=== PATIENT | female | born 1975 | race African-American/Black ===

== ENCOUNTER 2016-09-02 13:22 | Emergency (ER) | payer MEDICAID ==
[2010-10-22 09:19] VITALS: BMI 19.5
[2016-09-02 15:08] LABS: BASOPHILS 0.3 % (0.0-2.0); EOSINOPHILS 1.3 % (0-7); HEMATOCRIT 29.1 % (36.0-48.0); HEMOGLOBIN 10.5 g/dL (12-16); IMMATURE GRANULOCYTES 0.3 % (0-5); LYMPHOCYTES 26.7 % (15-50); MCH 32.7 pg (26.0-34.0); MCHC 36.1 g/dL (31.0-37.0); MCV 90.7 fL (80.0-100.0); MEAN PLATELET VOLUME 11.1 fL (7.4-10.4); MONOCYTES 9.9 % (2-11); NEUTROPHILS 61.5 % (40-80); RBC 3.21 10x6/uL (4.00-5.40); RDW 16.8 % (11.5-14.5); WBC 12.1 10x3/uL (4.8-10.8)
[2016-09-02 15:14] LABS: PLATELET COUNT 287 10x3/uL (130-400)
[2016-09-02 15:19] LABS: INR 0.99 (0.85-1.17); PROTIME 12.9 SECONDS (11.6-15.0)
[2016-09-02 15:28] LABS: ALBUMIN 3.3 g/dL (3.4-5.0); ANION GAP 16.2 mmol/L (8-16); BILIRUBIN - TOTAL 0.79 mg/dL (0.2-1.3); CALCIUM 8.8 mg/dL (8.5-10.1); CARBON DIOXIDE 23.9 mmol/L (21.0-32.0); CREATININE - SERUM 0.9 mg/dL (0.6-1.3); POTASSIUM - SERUM 4.1 mmol/L (3.5-5.1); PROTEIN - SERUM 6.2 g/dL (6.4-8.2)
== END 2016-09-02 17:42 | disposition home or self-care (01) ==
LOC: D.ER 13:22
PROVIDERS: Emergency Medicine
DX: D57.00 Hb-SS disease with crisis, unspecified (principal); F17.200 Nicotine dependence, unspecified, uncomplicated

== ENCOUNTER 2016-09-13 10:23 | Emergency (ER) | payer MEDICAID ==
[2010-10-22 09:19] VITALS: BMI 19.5
== END 2016-09-13 13:44 | disposition home or self-care (01) ==
LOC: D.ER 10:23
DX: S91.311A Laceration without foreign body, right foot, initial encounter (principal); W45.8XXA Other foreign body or object entering through skin, initial encounter; Y93.89 Activity, other specified; Y92.019 Unspecified place in single-family (private) house as the place of occurrence of the external cause; D57.1 Sickle-cell disease without crisis; F45.9 Somatoform disorder, unspecified

== ENCOUNTER 2016-09-19 09:20 | Emergency (ER) | payer MEDICAID ==
[2010-10-22 09:19] VITALS: BMI 19.5
[2016-09-19 10:06] LABS: BASOPHILS 0.4 % (0.0-2.0); EOSINOPHILS 1.7 % (0-7); HEMATOCRIT 32.7 % (36.0-48.0); HEMOGLOBIN 12.1 g/dL (12-16); IMMATURE GRANULOCYTES 0.3 % (0-5); LYMPHOCYTES 11.4 % (15-50); MCH 33.2 pg (26.0-34.0); MCV 89.6 fL (80.0-100.0); MEAN PLATELET VOLUME 10.3 fL (7.4-10.4); MONOCYTES 7.4 % (2-11); NEUTROPHILS 78.8 % (40-80); PLATELET COUNT 413 10x3/uL (130-400); RBC 3.65 10x6/uL (4.00-5.40); RDW 16.1 % (11.5-14.5); WBC 18.8 10x3/uL (4.8-10.8)
[2016-09-19 10:11] LABS: ANION GAP 14.7 mmol/L (8-16); CALCIUM 9.8 mg/dL (8.5-10.1); CARBON DIOXIDE 27.4 mmol/L (21.0-32.0); CREATININE - SERUM 0.9 mg/dL (0.6-1.3); POTASSIUM - SERUM 4.1 mmol/L (3.5-5.1)
== END 2016-09-19 11:39 | disposition home or self-care (01) ==
LOC: D.ER 09:20
PROVIDERS: Emergency Medicine
DX: D57.1 Sickle-cell disease without crisis (principal); F45.9 Somatoform disorder, unspecified; F17.200 Nicotine dependence, unspecified, uncomplicated

== ENCOUNTER 2016-10-04 08:24 | Emergency (ER) | payer MEDICAID ==
[2010-10-22 09:19] VITALS: BMI 19.5
== END 2016-10-04 09:05 | disposition home or self-care (01) ==
LOC: D.ER 08:24
DX: M25.50 Pain in unspecified joint (principal); D57.00 Hb-SS disease with crisis, unspecified; F45.9 Somatoform disorder, unspecified

== ENCOUNTER 2016-10-11 13:37 | Emergency (ER) | payer MEDICAID ==
[2010-10-22 09:19] VITALS: BMI 19.5
== END 2016-10-11 15:43 | disposition home or self-care (01) ==
LOC: D.ER 13:37
DX: M79.605 Pain in left leg (principal); D57.00 Hb-SS disease with crisis, unspecified; F17.200 Nicotine dependence, unspecified, uncomplicated

== ENCOUNTER 2016-10-18 22:33 | Emergency (ER) | payer MEDICAID ==
[2010-10-22 09:19] VITALS: BMI 19.5
[2016-10-18 23:44] LABS: BASOPHILS 0.4 % (0.0-2.0); EOSINOPHILS 2.8 % (0-7); HEMATOCRIT 33.3 % (36.0-48.0); HEMOGLOBIN 12.1 g/dL (12-16); IMMATURE GRANULOCYTES 0.7 % (0-5); LYMPHOCYTES 30.5 % (15-50); MCH 32.2 pg (26.0-34.0); MCHC 36.3 g/dL (31.0-37.0); MCV 88.6 fL (80.0-100.0); MEAN PLATELET VOLUME 9.6 fL (7.4-10.4); MONOCYTES 7.6 % (2-11); RBC 3.76 10x6/uL (4.00-5.40); RDW 16.3 % (11.5-14.5); WBC 13.7 10x3/uL (4.8-10.8)
[2016-10-18 23:49] LABS: PLATELET COUNT 536 10x3/uL (130-400)
== END 2016-10-19 00:58 | disposition home or self-care (01) ==
LOC: D.ER 22:33
PROVIDERS: Emergency Medicine
DX: D57.00 Hb-SS disease with crisis, unspecified (principal); F45.9 Somatoform disorder, unspecified

== ENCOUNTER 2016-10-19 11:05 | Emergency (ER) | payer MEDICAID ==
[2010-10-22 09:19] VITALS: BMI 19.5
== END 2016-10-19 15:54 | disposition home or self-care (01) ==
LOC: D.ER 11:05
DX: G89.29 Other chronic pain (principal); F45.9 Somatoform disorder, unspecified; F17.200 Nicotine dependence, unspecified, uncomplicated

== ENCOUNTER 2016-10-24 17:10 | Emergency (ER) | payer MEDICAID ==
[2010-10-22 09:19] VITALS: BMI 19.5
== END 2016-10-24 19:25 | disposition left against medical advice (07) ==
LOC: D.ER 17:10
DX: D57.00 Hb-SS disease with crisis, unspecified (principal)

== ENCOUNTER 2016-10-25 13:41 | Emergency (ER) | payer MEDICAID ==
[2010-10-22 09:19] VITALS: BMI 19.5
== END 2016-10-25 19:10 | disposition home or self-care (01) ==
LOC: D.ER 13:41
DX: S82.62XA Displaced fracture of lateral malleolus of left fibula, initial encounter for closed fracture (principal); X58.XXXA Exposure to other specified factors, initial encounter; Y93.89 Activity, other specified; Y92.019 Unspecified place in single-family (private) house as the place of occurrence of the external cause; Z86.73 Personal history of transient ischemic attack (TIA), and cerebral infarction without residual deficits; F45.9 Somatoform disorder, unspecified; D57.1 Sickle-cell disease without crisis

== ENCOUNTER 2016-11-02 15:29 | Emergency (ER) | payer MEDICAID ==
[2010-10-22 09:19] VITALS: BMI 19.5
== END 2016-11-02 20:00 | disposition home or self-care (01) ==
LOC: D.ER 15:29
DX: M79.605 Pain in left leg (principal); S82.62XA Displaced fracture of lateral malleolus of left fibula, initial encounter for closed fracture; X58.XXXA Exposure to other specified factors, initial encounter; Y93.9 Activity, unspecified; Y92.89 Other specified places as the place of occurrence of the external cause; Z86.73 Personal history of transient ischemic attack (TIA), and cerebral infarction without residual deficits; F45.9 Somatoform disorder, unspecified; F17.200 Nicotine dependence, unspecified, uncomplicated

== ENCOUNTER 2016-11-29 08:16 | Emergency (ER) | payer MEDICAID ==
[2010-10-22 09:19] VITALS: BMI 19.5
== END 2016-11-29 12:41 | disposition home or self-care (01) ==
LOC: D.ER 08:16
DX: S82.62XA Displaced fracture of lateral malleolus of left fibula, initial encounter for closed fracture (principal); X58.XXXA Exposure to other specified factors, initial encounter; Y93.89 Activity, other specified; Y92.89 Other specified places as the place of occurrence of the external cause; Z91.19 Patient's noncompliance with other medical treatment and regimen; Z86.73 Personal history of transient ischemic attack (TIA), and cerebral infarction without residual deficits; D57.1 Sickle-cell disease without crisis; F45.9 Somatoform disorder, unspecified; F17.200 Nicotine dependence, unspecified, uncomplicated

== ENCOUNTER 2016-12-23 17:19 | Emergency (ER) | payer MEDICAID ==
[2010-10-22 09:19] VITALS: BMI 19.5
== END 2016-12-23 20:19 | disposition left against medical advice (07) ==
LOC: D.ER 17:19
DX: M79.675 Pain in left toe(s) (principal); F45.9 Somatoform disorder, unspecified

== ENCOUNTER 2017-01-16 17:33 | Emergency (ER) | payer MEDICAID ==
[2010-10-22 09:19] VITALS: BMI 19.5
[2017-01-16 18:48] LABS: BASOPHILS 0.3 % (0-2); EOSINOPHILS 1.5 % (0-7); HEMATOCRIT 34.4 % (36.0-48.0); HEMOGLOBIN 12.5 g/dL (12-16); IMMATURE GRANULOCYTES 0.6 % (0-5); LYMPHOCYTES 13.1 % (15-50); MCH 34.3 pg (26.0-34.0); MCHC 36.3 g/dL (31.0-37.0); MCV 94.5 fL (80.0-100.0); MEAN PLATELET VOLUME 10.2 fL (7.4-10.4); MONOCYTES 8.1 % (2-11); NEUTROPHILS 76.4 % (40-80); PLATELET COUNT 351 10x3/uL (130-400); RBC 3.64 10x6/uL (4.00-5.40); RDW 16.1 % (11.5-14.5); WBC 18.5 10x3/uL (4.8-10.8)
== END 2017-01-16 19:15 | disposition home or self-care (01) ==
LOC: D.ER 17:33
PROVIDERS: Physician Assistant Medical
DX: D57.1 Sickle-cell disease without crisis (principal); Z76.0 Encounter for issue of repeat prescription; M79.605 Pain in left leg; M79.604 Pain in right leg; Z86.73 Personal history of transient ischemic attack (TIA), and cerebral infarction without residual deficits; F45.9 Somatoform disorder, unspecified; F17.200 Nicotine dependence, unspecified, uncomplicated

== ENCOUNTER 2017-01-21 07:22 | Emergency (ER) | payer MEDICAID ==
[2010-10-22 09:19] VITALS: BMI 19.5
== END 2017-01-21 08:12 | disposition left against medical advice (07) ==
LOC: D.ER 07:22
DX: T14.8 Other injury of unspecified body region (principal); W57.XXXA Bitten or stung by nonvenomous insect and other nonvenomous arthropods, initial encounter; Y93.89 Activity, other specified; Y92.89 Other specified places as the place of occurrence of the external cause

== ENCOUNTER 2017-02-23 12:14 | Emergency (ER) | payer MEDICAID ==
[2010-10-22 09:19] VITALS: BMI 19.5
[2017-02-23 13:02] LABS: APPEARANCE CLEAR (CLEAR); BILIRUBIN NEGATIVE (NEGATIVE); COLOR YELLOW (YELLOW); GLUCOSE NEGATIVE (NEGATIVE); KETONE NEGATIVE (NEGATIVE); LEUKOCYTE ESTERASE NEGATIVE (NEGATIVE); NITRITE NEGATIVE (NEGATIVE); PROTEIN NEGATIVE (NEGATIVE); SPECIFIC GRAVITY 1.015 (1.005-1.020); UROBILINOGEN NORMAL (NORMAL)
== END 2017-02-23 13:15 | disposition home or self-care (01) ==
LOC: D.ER 12:14
PROVIDERS: Physician Assistant
DX: M54.12 Radiculopathy, cervical region (principal)

== ENCOUNTER 2017-03-03 22:57 | Emergency (ER) | payer MEDICAID ==
[2010-10-22 09:19] VITALS: BMI 19.5
== END 2017-03-03 23:45 | disposition left against medical advice (07) ==
LOC: D.ER 22:57
DX: M79.604 Pain in right leg (principal)

== ENCOUNTER 2017-09-02 05:13 | Emergency (ER) | payer MEDICAID ==
[2010-10-22 09:19] VITALS: BMI 19.5
[2017-09-02 06:56] LABS: HEMATOCRIT 34.9 % (36.0-48.0); HEMOGLOBIN 12.6 g/dL (12-16); MCHC 36.1 g/dL (31.0-37.0); MCV 96.9 fL (80.0-100.0); MEAN PLATELET VOLUME 10.2 fL (7.4-10.4); PLATELET COUNT 560 10x3/uL (130-400); RDW 16.4 % (11.5-14.5); WBC 22.2 10x3/uL (4.8-10.8)
[2017-09-02 07:00] LABS: ALBUMIN 4.5 g/dL (3.4-5.0); BILIRUBIN - TOTAL 0.77 mg/dL (0.2-1.3); CALCIUM 10.1 mg/dL (8.5-10.1); CARBON DIOXIDE 18.1 mmol/L (21.0-32.0); CREATININE - SERUM 1.1 mg/dL (0.6-1.3); POTASSIUM - SERUM 4.1 mmol/L (3.5-5.1); PROTEIN - SERUM 8.5 g/dL (6.4-8.2)
[2017-09-02 07:18] LABS: LYMPHOCYTES 20 % (15-50); MONOCYTES 8 % (2-11); NEUTROPHILS 72 % (40-80); PLATELET ESTIMATE INCREASED
== END 2017-09-02 08:58 | disposition home or self-care (01) ==
LOC: D.ER 05:13
PROVIDERS: Family Medicine
DX: R09.89 Other specified symptoms and signs involving the circulatory and respiratory systems (principal); S20.469A Insect bite (nonvenomous) of unspecified back wall of thorax, initial encounter; W57.XXXA Bitten or stung by nonvenomous insect and other nonvenomous arthropods, initial encounter; Y93.89 Activity, other specified; Y92.019 Unspecified place in single-family (private) house as the place of occurrence of the external cause; L03.312 Cellulitis of back [any part except buttock and flank]; M79.1 Myalgia; D57.1 Sickle-cell disease without crisis

== ENCOUNTER 2017-09-19 09:07 | Inpatient (IN) | payer MEDICAID ==
[~2017-09-19] VITALS: Ht 160 cm; Wt 72.7 kg
[2017-09-19 09:48] LABS: BASOPHILS 0.2 % (0-2); EOSINOPHILS 1.4 % (0-7); HEMATOCRIT 32.9 % (36.0-48.0); HEMOGLOBIN 11.8 g/dL (12-16); IMMATURE GRANULOCYTES 0.4 % (0-5); MCH 33.5 pg (26.0-34.0); MCHC 35.9 g/dL (31.0-37.0); MCV 93.5 fL (80.0-100.0); MEAN PLATELET VOLUME 9.8 fL (7.4-10.4); MONOCYTES 5.8 % (2-11); NEUTROPHILS 76.2 % (40-80); PLATELET COUNT 479 10x3/uL (130-400); RBC 3.52 10x6/uL (4.00-5.40); RDW 16.5 % (11.5-14.5); WBC 17.5 10x3/uL (4.8-10.8)
[2017-09-19 10:36] LABS: ALBUMIN 3.5 g/dL (3.4-5.0); ANION GAP 15.2 mmol/L (8-16); BILIRUBIN - TOTAL 0.57 mg/dL (0.2-1.3); CALCIUM 8.5 mg/dL (8.5-10.1); CARBON DIOXIDE 23.6 mmol/L (21.0-32.0); POTASSIUM - SERUM 3.8 mmol/L (3.5-5.1); PROTEIN - SERUM 6.7 g/dL (6.4-8.2)
[2017-09-19 12:35] LABS: CKMB 0.8 U/L (0.0-3.6); CREATINE KINASE 66 UL (21-215)
[2017-09-19 12:37] LABS: TROPONIN-I < 0.017 ng/mL (0.000-0.060)
[2017-09-20 05:33] LABS: HEMATOCRIT 31.8 % (36.0-48.0); HEMOGLOBIN 11.6 g/dL (12-16); MCHC 36.5 g/dL (31.0-37.0); MCV 93.3 fL (80.0-100.0); MEAN PLATELET VOLUME 10.2 fL (7.4-10.4); PLATELET COUNT 539 10x3/uL (130-400); RBC 3.41 10x6/uL (4.00-5.40); RDW 16.4 % (11.5-14.5); WBC 26.1 10x3/uL (4.8-10.8)
[2017-09-20 06:04] LABS: ALBUMIN 3.5 g/dL (3.4-5.0); ANION GAP 12.5 mmol/L (8-16); BILIRUBIN - TOTAL 0.3 mg/dL (0.2-1.3); CALCIUM 8.8 mg/dL (8.5-10.1); CARBON DIOXIDE 24.1 mmol/L (21.0-32.0); CREATININE - SERUM 1.1 mg/dL (0.6-1.3); PROTEIN - SERUM 6.9 g/dL (6.4-8.2)
[2017-09-20 06:06] LABS: POTASSIUM - SERUM 4.6 mmol/L (3.5-5.1)
[2017-09-20 07:29] LABS: LYMPHOCYTES 11 % (15-50); MONOCYTES 2 % (2-11); NEUTROPHILS 86 % (40-80); POLYCHROMASIA OCC
[2017-09-20 07:34] LABS: VACUOLES OCC
[2017-09-20 07:37] LABS: ANISOCYTOSIS 1+; HYPOCHROMASIA 1+; TARGET CELLS OCC
[2017-09-20 07:39] LABS: PLATELET ESTIMATE INCREASED
[2017-09-20] MEDS ORDERED: FOLIC ACID1 MG PO (15:09)
[2017-09-20] MEDS ORDERED: XANAX1 MG PO (15:10)
[2017-09-20] MEDS ORDERED: DROXIA200 MG PO (15:13)
[2017-09-20] MEDS ORDERED: PERCOCET 10/3251 TA1 PO (15:14)
[2017-09-20 17:20] VITALS: BP 146/76; BMI 28.4
[2017-09-20 20:00] VITALS: BP 103/64
[2017-09-20 22:10] VITALS: Ht 160 cm; Wt 72.7 kg
[2017-09-21] VITALS: BP 138/89
[2017-09-21 00:58] LABS: HCG URINE NEGATIVE (NEGATIVE)
[2017-09-21 05:08] LABS: BASOPHILS 0.2 % (0-2); HEMOGLOBIN 10.8 g/dL (12-16); IMMATURE GRANULOCYTES 0.5 % (0-5); LYMPHOCYTES 25.7 % (15-50); MCH 33.2 pg (26.0-34.0); MCV 92.3 fL (80.0-100.0); MONOCYTES 6.4 % (2-11); NEUTROPHILS 66.2 % (40-80); PLATELET COUNT 528 10x3/uL (130-400); RBC 3.25 10x6/uL (4.00-5.40); RDW 16.6 % (11.5-14.5); WBC 20.3 10x3/uL (4.8-10.8)
[2017-09-21 05:44] LABS: ALBUMIN 3.3 g/dL (3.4-5.0); ANION GAP 14.2 mmol/L (8-16); BILIRUBIN - TOTAL 0.26 mg/dL (0.2-1.3); CALCIUM 8.8 mg/dL (8.5-10.1); CARBON DIOXIDE 24.7 mmol/L (21.0-32.0); CREATININE - SERUM 0.9 mg/dL (0.6-1.3); POTASSIUM - SERUM 4.9 mmol/L (3.5-5.1); PROTEIN - SERUM 5.9 g/dL (6.4-8.2)
[2017-09-21] MEDS ORDERED: HYDROXYUREA500 MG GT (06:54)
[2017-09-21] MEDS ORDERED: ZITHROMAX250 MG PO (06:57)
[2017-09-21] MEDS ORDERED: OMNICEF300 MG PO (06:57)
[2017-09-21 07:00] VITALS: BP 113/91
[2017-09-22 17:13] LABS: HGB - A2 4.6 % (1.8-3.2); HGB - F 2.9 % (0.0-2.0); HGB - INTERPRETATION Note: (()); HGB - S 48.5 % (0.0); HGB - SOLUBILITY Positive (Negative)
== END 2017-09-21 12:55 | disposition home or self-care (01) | DRG 193 ==
LOC: D.ER 09:07 → D.M2 09-20 14:10
PROVIDERS: Family Medicine; Legal Medicine; Student in an Organized Health Care Education/Training Program
DX: J18.9 Pneumonia, unspecified organism (principal); D57.00 Hb-SS disease with crisis, unspecified; F14.90 Cocaine use, unspecified, uncomplicated

== ENCOUNTER 2017-09-29 06:40 | Emergency (ER) | payer MEDICAID ==
[2017-09-20 22:10] VITALS: BMI 28.4
[~2017-09-29 06:40] MED LIST: DROXIA200 MG PO; FOLIC ACID1 MG PO; HYDROXYUREA500 MG GT; OMNICEF300 MG PO; PERCOCET 10/3251 TA1 PO; XANAX1 MG PO; ZITHROMAX250 MG PO
[2017-09-29 07:31] LABS: UDS - AMPHET NEGATIVE QUAL (NEGATIVE); UDS - BARB NEGATIVE QUAL (NEGATIVE); UDS - BENZO POSITIVE QUAL (NEGATIVE); UDS - COCAINE POSITIVE QUAL (NEGATIVE); UDS - OPIATE POSITIVE QUAL (NEGATIVE); UDS - PCP NEGATIVE QUAL (NEGATIVE); UDS - THC NEGATIVE QUAL (NEGATIVE)
== END 2017-09-29 08:31 | disposition home or self-care (01) ==
LOC: D.ER 06:40
PROVIDERS: Family Medicine
DX: T78.40XA Allergy, unspecified, initial encounter (principal); X58.XXXA Exposure to other specified factors, initial encounter; Z86.73 Personal history of transient ischemic attack (TIA), and cerebral infarction without residual deficits; F17.200 Nicotine dependence, unspecified, uncomplicated

== ENCOUNTER 2017-10-05 09:51 | Emergency (ER) | payer MEDICAID ==
[2017-09-20 22:10] VITALS: BMI 28.4
== END 2017-10-05 11:07 | disposition left against medical advice (07) ==
LOC: D.ER 09:51
DX: R05 Cough (principal)

== ENCOUNTER 2017-10-28 12:05 | Emergency (ER) | payer MEDICAID ==
[2017-09-20 22:10] VITALS: BMI 28.4
== END 2017-10-28 15:23 | disposition home or self-care (01) ==
LOC: D.ER 12:05
DX: M79.605 Pain in left leg (principal); M79.604 Pain in right leg; Z86.73 Personal history of transient ischemic attack (TIA), and cerebral infarction without residual deficits; D57.1 Sickle-cell disease without crisis; F17.200 Nicotine dependence, unspecified, uncomplicated

== ENCOUNTER 2017-11-20 03:20 | Emergency (ER) | payer MEDICAID ==
[2017-09-20 22:10] VITALS: BMI 28.4
== END 2017-11-20 04:14 | disposition home or self-care (01) ==
LOC: D.ER 03:20
DX: B85.0 Pediculosis due to Pediculus humanus capitis (principal); B85.1 Pediculosis due to Pediculus humanus corporis

== ENCOUNTER 2017-11-21 02:02 | Emergency (ER) | payer MEDICAID ==
[2017-09-20 22:10] VITALS: BMI 28.4
== END 2017-11-21 02:57 | disposition home or self-care (01) ==
LOC: D.ER 02:02
DX: F41.9 Anxiety disorder, unspecified (principal)

== ENCOUNTER 2017-11-23 03:13 | Emergency (ER) | payer MEDICAID ==
[2017-09-20 22:10] VITALS: BMI 28.4
== END 2017-11-23 04:43 | disposition home or self-care (01) ==
LOC: D.ER 03:13
DX: L29.9 Pruritus, unspecified (principal); Z86.73 Personal history of transient ischemic attack (TIA), and cerebral infarction without residual deficits; D57.1 Sickle-cell disease without crisis; F17.200 Nicotine dependence, unspecified, uncomplicated

== ENCOUNTER 2017-11-26 22:18 | Emergency (ER) | payer MEDICAID ==
[2017-09-20 22:10] VITALS: BMI 28.4
== END 2017-11-26 23:32 | disposition left against medical advice (07) ==
LOC: D.ER 22:18
DX: F41.0 Panic disorder [episodic paroxysmal anxiety] (principal)

== ENCOUNTER 2017-11-29 01:56 | Emergency (ER) | payer MEDICAID ==
[2017-09-20 22:10] VITALS: BMI 28.4
[2017-11-29 02:44] LABS: UDS - AMPHET NEGATIVE QUAL (NEGATIVE); UDS - BARB NEGATIVE QUAL (NEGATIVE); UDS - BENZO NEGATIVE QUAL (NEGATIVE); UDS - COCAINE POSITIVE QUAL (NEGATIVE); UDS - OPIATE NEGATIVE QUAL (NEGATIVE); UDS - PCP NEGATIVE QUAL (NEGATIVE); UDS - THC POSITIVE QUAL (NEGATIVE)
[2017-11-29 02:50] LABS: APPEARANCE CLEAR (CLEAR); BILIRUBIN NEGATIVE (NEGATIVE); COLOR YELLOW (YELLOW); GLUCOSE NEGATIVE (NEGATIVE); KETONE NEGATIVE (NEGATIVE); NITRITE NEGATIVE (NEGATIVE); PROTEIN NEGATIVE (NEGATIVE); SPECIFIC GRAVITY 1.015 (1.005-1.020); UROBILINOGEN NORMAL (NORMAL)
[2017-11-29 02:51] LABS: BACTERIA MODERATE /hpf (NONE SEEN); EPITHELIAL CELLS 0-5 /hpf (0-5); RED CELLS - URINE 0-5 /hpf (0-5); WHITE CELLS - URINE 0-5 /hpf (0-5)
[2017-11-29 03:04] LABS: BASOPHILS 0.3 % (0-2); EOSINOPHILS 0.9 % (0-7); HEMATOCRIT 35.4 % (36.0-48.0); HEMOGLOBIN 13.2 g/dL (12-16); IMMATURE GRANULOCYTES 0.6 % (0-5); LYMPHOCYTES 29.3 % (15-50); MCH 31.1 pg (26.0-34.0); MCHC 37.3 g/dL (31.0-37.0); MCV 83.5 fL (80.0-100.0); MONOCYTES 7.9 % (2-11); PLATELET COUNT 428 10x3/uL (130-400); RBC 4.24 10x6/uL (4.00-5.40); RDW 18.5 % (11.5-14.5)
[2017-11-29 03:19] LABS: ANION GAP 17.7 mmol/L (8-16); BILIRUBIN - TOTAL 0.77 mg/dL (0.2-1.3); CALCIUM 8.9 mg/dL (8.5-10.1); CARBON DIOXIDE 24.8 mmol/L (21.0-32.0); CREATININE - SERUM 0.9 mg/dL (0.6-1.3); POTASSIUM - SERUM 3.5 mmol/L (3.5-5.1); PROTEIN - SERUM 7.8 g/dL (6.4-8.2)
== END 2017-11-29 03:43 | disposition home or self-care (01) ==
LOC: D.ER 01:56
PROVIDERS: Family Medicine
DX: F14.10 Cocaine abuse, uncomplicated (principal); F12.10 Cannabis abuse, uncomplicated; F10.10 Alcohol abuse, uncomplicated; L29.9 Pruritus, unspecified; Z86.73 Personal history of transient ischemic attack (TIA), and cerebral infarction without residual deficits; F17.200 Nicotine dependence, unspecified, uncomplicated

== ENCOUNTER 2017-12-31 12:00 | Emergency (ER) | payer MEDICAID ==
[2017-09-20 22:10] VITALS: BMI 28.4
== END 2017-12-31 12:40 | disposition home or self-care (01) ==
LOC: D.ER 12:00
DX: B86 Scabies (principal); B85.0 Pediculosis due to Pediculus humanus capitis

== ENCOUNTER 2018-01-03 21:54 | Emergency (ER) | payer MEDICAID ==
[2017-09-20 22:10] VITALS: BMI 28.4
== END 2018-01-03 22:53 | disposition home or self-care (01) ==
LOC: D.ER 21:54
DX: F41.9 Anxiety disorder, unspecified (principal); L29.9 Pruritus, unspecified

== ENCOUNTER 2018-01-04 09:26 | Emergency (ER) | payer MEDICAID ==
[2017-09-20 22:10] VITALS: BMI 28.4
== END 2018-01-04 09:27 | disposition home or self-care (01) ==
LOC: D.ER 09:26
DX: Z02.9 Encounter for administrative examinations, unspecified (principal)

== ENCOUNTER 2018-01-31 10:49 | Emergency (ER) | payer MEDICAID ==
[~2018-01-31] VITALS: Ht 160 cm; Wt 63.6 kg
[2018-01-31 10:56] VITALS: Ht 160 cm; Wt 63.6 kg
[2018-01-31] MEDS ORDERED: HYDROXYUREA500 MG PO (11:23)
[2018-01-31] MEDS ORDERED: PERCOCET 10/3251 TA1 PO (11:23)
[2018-01-31 11:34] VITALS: BP 126/88
== END 2018-01-31 11:35 | disposition home or self-care (01) ==
LOC: D.ER 10:49
DX: D57.00 Hb-SS disease with crisis, unspecified (principal); Z86.73 Personal history of transient ischemic attack (TIA), and cerebral infarction without residual deficits; F17.200 Nicotine dependence, unspecified, uncomplicated; L29.9 Pruritus, unspecified

== ENCOUNTER 2018-02-09 13:11 | Emergency (ER) | payer MEDICAID ==
[~2018-02-09] VITALS: Ht 160 cm; Wt 59.1 kg
[~2018-02-09 13:11] MED LIST changes: +HYDROXYUREA500 MG PO
[2018-02-09 13:16] VITALS: BP 135/92; Ht 160 cm; Wt 59.1 kg
[2018-02-09 14:37] LABS: HEMATOCRIT 34.3 % (36.0-48.0); HEMOGLOBIN 12.8 g/dL (12-16); MCH 34.2 pg (26.0-34.0); MCHC 37.3 g/dL (31.0-37.0); MCV 91.7 fL (80.0-100.0); MEAN PLATELET VOLUME 9.9 fL (7.4-10.4); PLATELET COUNT 325 10x3/uL (130-400); RBC 3.74 10x6/uL (4.00-5.40); RDW 17.4 % (11.5-14.5); WBC 23.9 10x3/uL (4.8-10.8)
[2018-02-09 14:44] LABS: APPEARANCE CLOUDY (CLEAR); COLOR YELLOW (YELLOW); GLUCOSE NEGATIVE (NEGATIVE); KETONE NEGATIVE (NEGATIVE); NITRITE NEGATIVE (NEGATIVE); PROTEIN NEGATIVE (NEGATIVE); SPECIFIC GRAVITY 1.015 (1.005-1.020)
[2018-02-09 14:45] LABS: BILIRUBIN 1+ (NEGATIVE)
[2018-02-09 14:46] LABS: BACTERIA MODERATE /hpf (NONE SEEN); RED CELLS - URINE 0-5 /hpf (0-5); WHITE CELLS - URINE 0-5 /hpf (0-5)
[2018-02-09 14:56] LABS: ALBUMIN 3.7 g/dL (3.4-5.0); ANION GAP 15.9 mmol/L (8-16); BILIRUBIN - TOTAL 1.3 mg/dL (0.2-1.3); CALCIUM 9.8 mg/dL (8.5-10.1); CARBON DIOXIDE 23.2 mmol/L (21.0-32.0); CREATININE - SERUM 1.1 mg/dL (0.6-1.3); POTASSIUM - SERUM 4.1 mmol/L (3.5-5.1)
[2018-02-09 15:25] LABS: LYMPHOCYTES 12 % (15-50); MONOCYTES 1 % (2-11); NEUTROPHILS 87 % (40-80)
[2018-02-09 15:31] LABS: PLATELET ESTIMATE NORMAL; SICKLE CELLS OCC; TARGET CELLS OCC
== END 2018-02-09 16:23 | disposition home or self-care (01) ==
LOC: D.ER 13:11
PROVIDERS: Family Medicine
DX: J20.9 Acute bronchitis, unspecified (principal); D57.1 Sickle-cell disease without crisis; F17.200 Nicotine dependence, unspecified, uncomplicated; R09.89 Other specified symptoms and signs involving the circulatory and respiratory systems; M54.6 Pain in thoracic spine

== ENCOUNTER 2018-02-16 18:08 | Emergency (ER) | payer MEDICAID ==
[~2018-02-16] VITALS: Ht 160 cm; Wt 59.1 kg
[2018-02-16 19:19] VITALS: Ht 160 cm; Wt 59.1 kg
[2018-02-16] MEDS ORDERED: PERMETHRIN60 GM TOPICAL (21:33)
[2018-02-16 22:04] VITALS: BP 132/84
== END 2018-02-16 22:06 | disposition home or self-care (01) ==
LOC: D.ER 18:08
DX: L50.9 Urticaria, unspecified (principal); T75.89XA Other specified effects of external causes, initial encounter; M79.605 Pain in left leg

== ENCOUNTER 2018-03-13 12:29 | Emergency (ER) | payer MEDICAID ==
[~2018-03-13 12:29] MED LIST changes: +PERMETHRIN60 GM TOPICAL
[2018-03-13 12:42] VITALS: BP 123/077; Ht 160 cm
== END 2018-03-13 14:14 | disposition left against medical advice (07) ==
LOC: D.ER 12:29
DX: R07.81 Pleurodynia (principal); D57.1 Sickle-cell disease without crisis

== ENCOUNTER 2018-03-17 22:02 | Emergency (ER) | payer MEDICAID | END 2018-03-17 22:20 | disposition left against medical advice (07) | LOC: D.ER 22:02 | DX: R44.3 Hallucinations, unspecified (principal) ==

== ENCOUNTER 2018-03-24 09:51 | Observation (INO) | payer MEDICAID ==
[~2018-03-24] VITALS: Ht 160 cm; Wt 59.1 kg
[2018-03-24 10:44] LABS: BASOPHILS 0.3 % (0-2); EOSINOPHILS 1.3 % (0-7); HEMATOCRIT 35.5 % (36.0-48.0); HEMOGLOBIN 13.3 g/dL (12-16); IMMATURE GRANULOCYTES 0.9 % (0-5); LYMPHOCYTES 18.1 % (15-50); MCHC 37.5 g/dL (31.0-37.0); MCV 90.8 fL (80.0-100.0); MEAN PLATELET VOLUME 10.5 fL (7.4-10.4); MONOCYTES 6.6 % (2-11); NEUTROPHILS 72.8 % (40-80); PLATELET COUNT 299 10x3/uL (130-400); RBC 3.91 10x6/uL (4.00-5.40); RDW 16.8 % (11.5-14.5); WBC 15.2 10x3/uL (4.8-10.8)
[2018-03-24 10:45] VITALS: BP 140/98
[2018-03-24 10:51] LABS: ALBUMIN 3.4 g/dL (3.4-5.0); ALKALINE PHOSPHATASE 115 U/L (46-116); ALT (SGPT) 24 U/L (10-68); BILIRUBIN - TOTAL 2.22 mg/dL (0.2-1.3); CALC OSMOLALITY 273 mosm/kg (275-300); CALCIUM 8.5 mg/dL (8.5-10.1); CARBON DIOXIDE 27.9 mmol/L (21.0-32.0); CHLORIDE - SERUM 101 mmol/L (98-107); CREATININE - SERUM 0.8 mg/dL (0.6-1.3); GLUCOSE 119 mg/dL (74-106); POTASSIUM - SERUM 3.5 mmol/L (3.5-5.1); SODIUM 137 mmol/L (136-145); UREA NITROGEN 9 mg/dL (7-18); eGFR NON AFRICAN AMERICAN 84 mL/min (90-120)
[2018-03-24 14:00] VITALS: BP 112/79
[2018-03-24 15:14] VITALS: BP 128/78
[2018-03-24 20:06] VITALS: BP 132/95; Ht 160 cm; Wt 59.1 kg
[2018-03-24 20:16] VITALS: BP 113/76
[2018-03-25 00:18] VITALS: BP 115/73
[2018-03-25 04:41] VITALS: BP 145/89
[2018-03-25] MEDS ORDERED: VISTARIL25 MG PO (06:36)
[2018-03-25] MEDS ORDERED: PROAIR HFA8.5 GM INH (06:39)
[2018-03-25 07:49] LABS: ALBUMIN 3.5 g/dL (3.4-5.0); ALKALINE PHOSPHATASE 103 U/L (46-116); ALT (SGPT) 25 U/L (10-68); BILIRUBIN - TOTAL 0.94 mg/dL (0.2-1.3); CALC OSMOLALITY 281 mosm/kg (275-300); CALCIUM 9.6 mg/dL (8.5-10.1); CARBON DIOXIDE 22.7 mmol/L (21.0-32.0); CHLORIDE - SERUM 102 mmol/L (98-107); CREATININE - SERUM 0.8 mg/dL (0.6-1.3); GLUCOSE 170 mg/dL (74-106); POTASSIUM - SERUM 4.3 mmol/L (3.5-5.1); PROTEIN - SERUM 6.9 g/dL (6.4-8.2); SODIUM 138 mmol/L (136-145); UREA NITROGEN 19 mg/dL (7-18); eGFR NON AFRICAN AMERICAN 84 mL/min (90-120)
[2018-03-25 07:50] LABS: HEMATOCRIT 32.6 % (36.0-48.0); HEMOGLOBIN 12.3 g/dL (12-16); MCHC 37.7 g/dL (31.0-37.0); MCV 90.1 fL (80.0-100.0); PLATELET COUNT 278 10x3/uL (130-400); RBC 3.62 10x6/uL (4.00-5.40); RDW 16.3 % (11.5-14.5); WBC 17.6 10x3/uL (4.8-10.8)
[2018-03-25 08:31] LABS: LYMPHOCYTES 10 % (15-50); MONOCYTES 2 % (2-11); NEUTROPHILS 88 % (40-80); PLATELET ESTIMATE NORMAL
[2018-03-25 12:38] VITALS: BP 132/76
== END 2018-03-25 15:36 | disposition left against medical advice (07) ==
LOC: D.ER 09:51 → D.EDHOLD 14:11 → D.MS 14:18 → OBSVTIME 17:00 → D.MS 03-25 15:36
PROVIDERS: Family Medicine
DX: R53.83 Other fatigue (principal); R53.81 Other malaise; J02.9 Acute pharyngitis, unspecified; F17.210 Nicotine dependence, cigarettes, uncomplicated

== ENCOUNTER → 2018-03-26 12:51 | Emergency (ER) | payer MEDICAID ==
[2018-03-24 20:06] VITALS: BMI 23.0
[~2018-03-26 12:51] MED LIST changes: +ELIQUIS5 MG PO; +LISINOPRIL10 MG PO; +PROAIR HFA8.5 GM INH; +VISTARIL25 MG PO
== END | disposition home or self-care (01) ==
LOC: D.ER 12:51
DX: R05 Cough (principal); Z76.5 Malingerer [conscious simulation]; R09.89 Other specified symptoms and signs involving the circulatory and respiratory systems; Z86.73 Personal history of transient ischemic attack (TIA), and cerebral infarction without residual deficits; F17.200 Nicotine dependence, unspecified, uncomplicated

== ENCOUNTER 2018-03-26 16:46 | Emergency (ER) | payer MEDICAID ==
[~2018-03-26] VITALS: Ht 160 cm; Wt 59.1 kg
[~2018-03-26 16:46] MED LIST changes: -ELIQUIS5 MG PO; -LISINOPRIL10 MG PO
[2018-03-26 17:05] VITALS: BP 120/70; Ht 160 cm; Wt 59.1 kg
== END 2018-03-26 20:29 | disposition home or self-care (01) ==
LOC: D.ER 16:46
DX: R05 Cough (principal); Z76.5 Malingerer [conscious simulation]; R09.89 Other specified symptoms and signs involving the circulatory and respiratory systems; Z86.73 Personal history of transient ischemic attack (TIA), and cerebral infarction without residual deficits; F17.200 Nicotine dependence, unspecified, uncomplicated

== ENCOUNTER 2018-04-08 04:09 | Inpatient (IN) | payer MEDICAID ==
[~2018-04-08] VITALS: Ht 160 cm; Wt 59.1 kg
[2018-04-08 04:35] VITALS: BP 125/76
[2018-04-08] MEDS ORDERED: HYDROXYUREA500 MG GT (05:31)
[2018-04-08] MEDS ORDERED: FOLIC ACID1 MG PO (05:31)
[2018-04-08 05:43] VITALS: BP 126/81
[2018-04-08 05:54] LABS: ALBUMIN 3.3 g/dL (3.4-5.0); ALKALINE PHOSPHATASE 115 U/L (46-116); ALT (SGPT) 22 U/L (10-68); BILIRUBIN - TOTAL 1.01 mg/dL (0.2-1.3); CALC OSMOLALITY 284 mosm/kg (275-300); CALCIUM 7.9 mg/dL (8.5-10.1); CHLORIDE - SERUM 112 mmol/L (98-107); CREATININE - SERUM 0.8 mg/dL (0.6-1.3); POTASSIUM - SERUM 4.2 mmol/L (3.5-5.1); PROTEIN - SERUM 6.4 g/dL (6.4-8.2); SODIUM 142 mmol/L (136-145); UREA NITROGEN 17 mg/dL (7-18); eGFR NON AFRICAN AMERICAN 84 mL/min (90-120)
[2018-04-08 05:58] LABS: GLUCOSE 99 mg/dL (74-106)
[2018-04-08 06:21] LABS: HEMATOCRIT 31.9 % (36.0-48.0); HEMOGLOBIN 11.8 g/dL (12-16); MCH 33.9 pg (26.0-34.0); MCV 91.7 fL (80.0-100.0); MEAN PLATELET VOLUME 10.4 fL (7.4-10.4); PLATELET COUNT 373 10x3/uL (130-400); RBC 3.48 10x6/uL (4.00-5.40); RDW 17.1 % (11.5-14.5); WBC 24.8 10x3/uL (4.8-10.8)
[2018-04-08 06:50] LABS: APPEARANCE CLEAR (CLEAR); BILIRUBIN NEGATIVE (NEGATIVE); COLOR YELLOW (YELLOW); GLUCOSE NEGATIVE (NEGATIVE); KETONE NEGATIVE (NEGATIVE); NITRITE NEGATIVE (NEGATIVE); PROTEIN NEGATIVE (NEGATIVE); SPECIFIC GRAVITY 1.015 (1.005-1.020); UROBILINOGEN NORMAL (NORMAL)
[2018-04-08 07:08] LABS: LYMPHOCYTES 19 % (15-50); MONOCYTES 3 % (2-11); NEUTROPHILS 76 % (40-80); PLATELET ESTIMATE NORMAL
[2018-04-08 11:02] VITALS: BP 181/103; Ht 160 cm; Wt 59.1 kg
[2018-04-08 12:59] VITALS: BP 181/103
[2018-04-08 18:50] VITALS: BP 173/107
[2018-04-08 19:25] LABS: UDS - AMPHET NEGATIVE QUAL (NEGATIVE); UDS - BARB NEGATIVE QUAL (NEGATIVE); UDS - BENZO NEGATIVE QUAL (NEGATIVE); UDS - COCAINE POSITIVE QUAL (NEGATIVE); UDS - OPIATE POSITIVE QUAL (NEGATIVE); UDS - PCP NEGATIVE QUAL (NEGATIVE); UDS - THC NEGATIVE QUAL (NEGATIVE)
[2018-04-08 20:00] VITALS: BP 145/90
[2018-04-09] VITALS: BP 151/98
[2018-04-09 04:00] VITALS: BP 160/96
[2018-04-09 05:21] LABS: BASOPHILS 0.2 % (0-2); EOSINOPHILS 0.6 % (0-7); HEMATOCRIT 29.1 % (36.0-48.0); HEMOGLOBIN 10.7 g/dL (12-16); IMMATURE GRANULOCYTES 1.1 % (0-5); LYMPHOCYTES 13.6 % (15-50); MCH 33.6 pg (26.0-34.0); MCHC 36.8 g/dL (31.0-37.0); MCV 91.5 fL (80.0-100.0); MEAN PLATELET VOLUME 10.1 fL (7.4-10.4); MONOCYTES 6.7 % (2-11); NEUTROPHILS 77.8 % (40-80); PLATELET COUNT 287 10x3/uL (130-400); RBC 3.18 10x6/uL (4.00-5.40); WBC 22.1 10x3/uL (4.8-10.8)
[2018-04-09 08:41] VITALS: BP 155/105
[2018-04-09 11:58] VITALS: BP 167/112
[2018-04-09 14:57] VITALS: BP 156/97
[2018-04-09 20:32] VITALS: BP 152/71
[2018-04-10 04:26] VITALS: BP 150/97
[2018-04-10 07:43] VITALS: BP 146/63
[2018-04-10 09:27] LABS: HEMATOCRIT 29.4 % (36.0-48.0); HEMOGLOBIN 10.8 g/dL (12-16); MCH 33.3 pg (26.0-34.0); MCHC 36.7 g/dL (31.0-37.0); MCV 90.7 fL (80.0-100.0); MEAN PLATELET VOLUME 10.1 fL (7.4-10.4); PLATELET COUNT 261 10x3/uL (130-400); RBC 3.24 10x6/uL (4.00-5.40); RDW 17.5 % (11.5-14.5); WBC 18.6 10x3/uL (4.8-10.8)
[2018-04-10 09:43] LABS: ANION GAP 10.6 mmol/L (8-16); BILIRUBIN - TOTAL 2.16 mg/dL (0.2-1.3); CALCIUM 8.6 mg/dL (8.5-10.1); CARBON DIOXIDE 29.7 mmol/L (21.0-32.0); CREATININE - SERUM 0.9 mg/dL (0.6-1.3); POTASSIUM - SERUM 3.3 mmol/L (3.5-5.1); PROTEIN - SERUM 6.5 g/dL (6.4-8.2)
[2018-04-10 10:57] LABS: ANISOCYTOSIS OCC; LYMPHOCYTES 14 % (15-50); MONOCYTES 8 % (2-11); NEUTROPHILS 77 % (40-80); PLATELET ESTIMATE NORMAL; POIKILOCYTOSIS OCC; SCHISTOCYTES OCC; SICKLE CELLS OCC
[2018-04-10 12:11] LABS: HAPTOGLOBIN <10 mg/dL (34-200)
[2018-04-10 12:17] VITALS: BP 155/90
[2018-04-10 16:03] VITALS: BP 155/106
[2018-04-10 21:46] VITALS: BP 148/101
[2018-04-11 05:15] VITALS: BP 175/110
[2018-04-11 08:27] VITALS: BP 194/109
[2018-04-11 12:43] VITALS: BP 146/90
[2018-04-11 13:16] LABS: HGB SOLUBILITY (SICKLE SCREEN) Positive (Negative)
[2018-04-11 20:00] VITALS: BP 146/105
[2018-04-12 04:00] VITALS: BP 150/104
[2018-04-12 07:00] LABS: BASOPHILS 0.1 % (0-2); HEMATOCRIT 26.1 % (36.0-48.0); HEMOGLOBIN 9.5 g/dL (12-16); IMMATURE GRANULOCYTES 0.5 % (0-5); MCHC 36.4 g/dL (31.0-37.0); MCV 90.6 fL (80.0-100.0); MONOCYTES 8.5 % (2-11); NEUTROPHILS 75.9 % (40-80); PLATELET COUNT 268 10x3/uL (130-400); RBC 2.88 10x6/uL (4.00-5.40); RDW 16.6 % (11.5-14.5); WBC 17.1 10x3/uL (4.8-10.8)
[2018-04-12 07:51] LABS: ALBUMIN 2.5 g/dL (3.4-5.0); ALKALINE PHOSPHATASE 104 U/L (46-116); ALT (SGPT) 20 U/L (10-68); BILIRUBIN - TOTAL 1.62 mg/dL (0.2-1.3); CALC OSMOLALITY 276 mosm/kg (275-300); CALCIUM 7.9 mg/dL (8.5-10.1); CARBON DIOXIDE 27.7 mmol/L (21.0-32.0); CHLORIDE - SERUM 104 mmol/L (98-107); CREATININE - SERUM 0.8 mg/dL (0.6-1.3); GLUCOSE 96 mg/dL (74-106); POTASSIUM - SERUM 3.2 mmol/L (3.5-5.1); PROTEIN - SERUM 5.8 g/dL (6.4-8.2); SODIUM 140 mmol/L (136-145); eGFR NON AFRICAN AMERICAN 84 mL/min (90-120)
[2018-04-12 07:52] LABS: UREA NITROGEN 8 mg/dL (7-18)
[2018-04-12 08:28] VITALS: BP 157/92
[2018-04-12 16:33] LABS: APPEARANCE CLEAR (CLEAR); COLOR YELLOW (YELLOW); GLUCOSE 50 mg/dL (NEGATIVE); NITRITE NEGATIVE (NEGATIVE); PROTEIN NEGATIVE (NEGATIVE)
[2018-04-12 16:34] LABS: BILIRUBIN NEGATIVE (NEGATIVE); KETONE NEGATIVE (NEGATIVE); UROBILINOGEN NORMAL (NORMAL)
[2018-04-12 16:39] VITALS: BP 136/68
[2018-04-12] MEDS ORDERED: LISINOPRIL10 MG PO (17:05)
[2018-04-12] MEDS ORDERED: ELIQUIS5 MG PO (17:08)
[2018-04-12] MEDS ORDERED: PERCOCET 10/3251 TA1 PO (17:09)
== END 2018-04-12 19:46 | disposition home or self-care (01) | DRG 812 ==
LOC: D.ER 04:09 → D.EDHOLD 06:50 → D.MS 06:50
PROVIDERS: Emergency Medicine; Internal Medicine Medical Oncology
DX: D57.00 Hb-SS disease with crisis, unspecified (principal); I10 Essential (primary) hypertension; F41.9 Anxiety disorder, unspecified; F17.200 Nicotine dependence, unspecified, uncomplicated; F17.210 Nicotine dependence, cigarettes, uncomplicated; F14.10 Cocaine abuse, uncomplicated; J20.9 Acute bronchitis, unspecified; R70.1 Abnormal plasma viscosity; Z76.5 Malingerer [conscious simulation]

== ENCOUNTER 2018-04-15 03:45 | Emergency (ER) | payer MEDICAID ==
[~2018-04-15] VITALS: Ht 160 cm; Wt 59.1 kg
[~2018-04-15 03:45] MED LIST changes: +ELIQUIS5 MG PO; +LISINOPRIL10 MG PO
[2018-04-15 03:49] VITALS: BP 135/93; Ht 160 cm; Wt 59.1 kg
== END 2018-04-15 04:30 | disposition home or self-care (01) ==
LOC: D.ER 03:45
DX: L29.9 Pruritus, unspecified (principal); I10 Essential (primary) hypertension; Z86.718 Personal history of other venous thrombosis and embolism; F17.200 Nicotine dependence, unspecified, uncomplicated

== ENCOUNTER 2018-05-05 11:46 | Emergency (ER) | payer MEDICAID ==
[~2018-05-05] VITALS: Ht 160 cm; Wt 56.7 kg
[2018-05-05 11:49] VITALS: Ht 160 cm; Wt 56.7 kg
[2018-05-05 13:53] VITALS: BP 132/68
== END 2018-05-05 14:06 | disposition home or self-care (01) ==
LOC: D.ER 11:46
DX: D57.1 Sickle-cell disease without crisis (principal); L98.9 Disorder of the skin and subcutaneous tissue, unspecified; F19.10 Other psychoactive substance abuse, uncomplicated; M25.561 Pain in right knee

== ENCOUNTER 2018-06-07 10:12 | Observation (INO) | payer MEDICAID ==
[~2018-06-07] VITALS: Ht 160 cm; Wt 56.8 kg
--- NOTE | ~2018-06-07 | MORECARE ---
CASE MANAGEMENT DISCHARGE SUMMARY PATIENT: RODRICK RAMIREZ HERNANDEZ UNIT: [id number] ADM DATE: 06/07/18 AGE: 42 : 77 SEX: F ROOM/BED: D.[facility] AUTHOR: DORIAN GAMING PHYSICIAN: REFERRING PHYSICIAN: CRUZ HOLDEN MD DATE OF SERVICE: 06/09/18 Discharge Plan Patient Name: RODRICK RAMIREZ [facility] [facility] 1975 Planned Disposition: Home Anticipated Discharge Date: 06/08/18 Discharge Date: 06/08/2018 Expected LOS: 1 Initial Reviewer: [email or web address] Initial Review Date: 06/09/2018 Generated: 06/09/18 9:38 am Patient Name: RODRICK RAMIREZ Page 59937 at 0838 All edits/amendments must be made on the electronic document DICTATION DATE: 06/09/18836 PHOTOGRAPHY INSTRUCTOR: JOSEPHINE 06/09/1837 RPT#: [id number] DC DATE:06/08/18 STATUS: DIS IN [facility] [address] [place] [address] END OF REPORT
[2018-06-07 10:55] LABS: BASOPHILS 0.5 % (0-2); EOSINOPHILS 1.3 % (0-7); HEMATOCRIT 38.3 % (36.0-48.0); HEMOGLOBIN 14.1 g/dL (12-16); IMMATURE GRANULOCYTES 0.7 % (0-5); LYMPHOCYTES 19.1 % (15-50); MCH 33.6 pg (26.0-34.0); MCHC 36.8 g/dL (31.0-37.0); MCV 91.2 fL (80.0-100.0); MEAN PLATELET VOLUME 10.2 fL (7.4-10.4); NEUTROPHILS 68.4 % (40-80); PLATELET COUNT 288 10x3/uL (130-400); RDW 15.6 % (11.5-14.5); WBC 15.1 10x3/uL (4.8-10.8)
[2018-06-07 11:03] LABS: APPEARANCE CLEAR (CLEAR); BILIRUBIN NEGATIVE (NEGATIVE); COLOR YELLOW (YELLOW); GLUCOSE NEGATIVE (NEGATIVE); KETONE NEGATIVE (NEGATIVE); NITRITE NEGATIVE (NEGATIVE); PROTEIN NEGATIVE (NEGATIVE); SPECIFIC GRAVITY 1.015 (1.005-1.020); UROBILINOGEN NORMAL (NORMAL)
[2018-06-07 11:08] LABS: ALBUMIN 3.7 g/dL (3.4-5.0); ALKALINE PHOSPHATASE 94 U/L (46-116); ALT (SGPT) 28 U/L (10-68); CALC OSMOLALITY 280 mosm/kg (275-300); CALCIUM 9.3 mg/dL (8.5-10.1); CARBON DIOXIDE 24.3 mmol/L (21.0-32.0); CHLORIDE - SERUM 106 mmol/L (98-107); CREATININE - SERUM 0.8 mg/dL (0.6-1.3); GLUCOSE 102 mg/dL (74-106); POTASSIUM - SERUM 4.6 mmol/L (3.5-5.1); SODIUM 140 mmol/L (136-145); UREA NITROGEN 17 mg/dL (7-18); eGFR NON AFRICAN AMERICAN 84 mL/min (90-120)
[2018-06-07] MEDS ORDERED: MEDROL DOSE PACK4 MG PO (13:50)
[2018-06-07] MEDS ORDERED: PROAIR HFA 90 MCG IN (13:51)
[2018-06-07] MEDS ORDERED: PERMETHRIN60 GM TOPICAL (13:51)
[2018-06-07] MEDS ORDERED: DOXYCYCLINE HY100 M2 PO (13:51)
[2018-06-07 14:12] VITALS: BP 130/81; Ht 160 cm; Wt 56.8 kg
[2018-06-07 16:53] VITALS: BP 130/81
[2018-06-07 21:31] VITALS: BP 138/78
[2018-06-08 01:11] VITALS: BP 138/87
[2018-06-08 05:55] LABS: BASOPHILS 0.2 % (0-2); EOSINOPHILS 1.4 % (0-7); HEMATOCRIT 32.2 % (36.0-48.0); IMMATURE GRANULOCYTES 0.5 % (0-5); LYMPHOCYTES 24.2 % (15-50); MCH 33.7 pg (26.0-34.0); MCHC 37.3 g/dL (31.0-37.0); MCV 90.4 fL (80.0-100.0); MEAN PLATELET VOLUME 10.9 fL (7.4-10.4); MONOCYTES 10.8 % (2-11); NEUTROPHILS 62.9 % (40-80); PLATELET COUNT 285 10x3/uL (130-400); RBC 3.56 10x6/uL (4.00-5.40); RDW 15.6 % (11.5-14.5); WBC 15.3 10x3/uL (4.8-10.8)
[2018-06-08 06:09] LABS: ALBUMIN 3.3 g/dL (3.4-5.0); ALKALINE PHOSPHATASE 81 U/L (46-116); ALT (SGPT) 26 U/L (10-68); BILIRUBIN - TOTAL 0.77 mg/dL (0.2-1.3); CALC OSMOLALITY 281 mosm/kg (275-300); CALCIUM 8.5 mg/dL (8.5-10.1); CARBON DIOXIDE 27.4 mmol/L (21.0-32.0); CHLORIDE - SERUM 106 mmol/L (98-107); CREATININE - SERUM 0.8 mg/dL (0.6-1.3); GLUCOSE 103 mg/dL (74-106); PHOSPHOROUS 4.9 mg/dL (2.5-4.9); POTASSIUM - SERUM 4.1 mmol/L (3.5-5.1); PROTEIN - SERUM 6.4 g/dL (6.4-8.2); SODIUM 141 mmol/L (136-145); UREA NITROGEN 14 mg/dL (7-18); eGFR NON AFRICAN AMERICAN 84 mL/min (90-120)
[2018-06-08 07:25] VITALS: BP 119/80
[2018-06-08 09:24] VITALS: BP 134/87
== END 2018-06-08 13:17 | disposition home or self-care (01) ==
LOC: D.ER 10:12 → D.EDHOLD 12:44 → D.M2 12:44 → OBSVTIME 12:45 → D.M2 13:11
PROVIDERS: Family Medicine
DX: D57.3 Sickle-cell trait (principal); R52 Pain, unspecified; Z72.0 Tobacco use; I10 Essential (primary) hypertension; Z86.718 Personal history of other venous thrombosis and embolism; D72.829 Elevated white blood cell count, unspecified

== ENCOUNTER 2018-07-06 08:35 | Emergency (ER) | payer MEDICAID ==
[~2018-07-06] VITALS: Ht 160 cm; Wt 59.1 kg
[~2018-07-06 08:35] MED LIST changes: +DOXYCYCLINE HY100 M2 PO; +MEDROL DOSE PACK4 MG PO; +PROAIR HFA 90 MCG IN
[2018-07-06 08:55] VITALS: Ht 160 cm; Wt 59.1 kg
[2018-07-06 10:07] VITALS: BP 128/090
== END 2018-07-06 09:05 | disposition left against medical advice (07) ==
LOC: D.ER 08:35
DX: D57.1 Sickle-cell disease without crisis (principal)

== ENCOUNTER 2018-07-23 11:50 | Emergency (ER) | payer MEDICAID ==
[~2018-07-23] VITALS: Ht 160 cm; Wt 56.8 kg
[2018-07-23 11:58] VITALS: Ht 160 cm; Wt 56.8 kg
[2018-07-23] MEDS ORDERED: VOLTAREN75 MG PO (13:35)
[2018-07-23 14:15] VITALS: BP 138/94
== END 2018-07-23 14:17 | disposition home or self-care (01) ==
LOC: D.ER 11:50
DX: M54.2 Cervicalgia (principal); Z76.5 Malingerer [conscious simulation]; D57.1 Sickle-cell disease without crisis; F17.200 Nicotine dependence, unspecified, uncomplicated

== ENCOUNTER 2018-08-09 17:20 | Emergency (ER) | payer MEDICAID ==
[~2018-08-09] VITALS: Ht 160 cm; Wt 59.1 kg
[~2018-08-09 17:20] MED LIST changes: +VOLTAREN75 MG PO
[2018-08-09 17:24] VITALS: BP 189/111; Ht 160 cm; Wt 59.1 kg
[2018-08-09] MEDS ORDERED: BLOOD THINNER (17:27)
== END 2018-08-09 20:55 | disposition home or self-care (01) ==
LOC: D.ER 17:20
DX: D57.3 Sickle-cell trait (principal); M79.662 Pain in left lower leg; Z86.718 Personal history of other venous thrombosis and embolism; Z79.01 Long term (current) use of anticoagulants; F17.200 Nicotine dependence, unspecified, uncomplicated

== ENCOUNTER 2018-09-06 10:45 | Emergency (ER) | payer MEDICAID ==
[~2018-09-06] VITALS: Ht 160 cm; Wt 52.3 kg
[~2018-09-06 10:45] MED LIST changes: +BLOOD THINNER
[2018-09-06 10:53] VITALS: BP 153/95; Ht 160 cm; Wt 52.3 kg
[2018-09-06] MEDS ORDERED: ELIQUIS5 MG PO (10:55)
[2018-09-06] MEDS ORDERED: PHENERGAN DM SYR5 ML PO (12:04)
[2018-09-06] MEDS ORDERED: ZPAK PO (12:04)
== END 2018-09-06 12:36 | disposition home or self-care (01) ==
LOC: D.ER 10:45
DX: J06.9 Acute upper respiratory infection, unspecified (principal); J40 Bronchitis, not specified as acute or chronic; R05 Cough; Z86.73 Personal history of transient ischemic attack (TIA), and cerebral infarction without residual deficits; F17.200 Nicotine dependence, unspecified, uncomplicated; D57.1 Sickle-cell disease without crisis

== ENCOUNTER 2018-09-20 13:32 | Inpatient (IN) | payer MEDICAID ==
[~2018-09-20] VITALS: Ht 160 cm; Wt 54.4 kg
[~2018-09-20 13:32] MED LIST changes: +PHENERGAN DM SYR5 ML PO; +ZPAK PO
[2018-09-20] MEDS ORDERED: HYDRALAZINE HCL10 MG PO (15:29)
[2018-09-20 15:30] VITALS: BMI 21.3
[2018-09-20 16:25] LABS: HEMATOCRIT 35.7 % (36.0-48.0); HEMOGLOBIN 12.5 g/dL (12-16); MCH 33.5 pg (26.0-34.0); MCV 95.7 fL (80.0-100.0); MEAN PLATELET VOLUME 10.8 fL (7.4-10.4); RBC 3.73 10x6/uL (4.00-5.40); RDW 17.3 % (11.5-14.5); WBC 18.8 10x3/uL (4.8-10.8)
[2018-09-20 16:30] LABS: PLATELET COUNT 541 10x3/uL (130-400)
[2018-09-20 16:36] LABS: ALBUMIN 3.2 g/dL (3.4-5.0); ALKALINE PHOSPHATASE 139 U/L (46-116); ALT (SGPT) 36 U/L (10-68); BILIRUBIN - TOTAL 0.73 mg/dL (0.2-1.3); CALC OSMOLALITY 283 mosm/kg (275-300); CALCIUM 9.7 mg/dL (8.5-10.1); CARBON DIOXIDE 25.8 mmol/L (21.0-32.0); CHLORIDE - SERUM 102 mmol/L (98-107); CREATININE - SERUM 0.7 mg/dL (0.6-1.3); GLUCOSE 122 mg/dL (74-106); POTASSIUM - SERUM 4.9 mmol/L (3.5-5.1); SODIUM 140 mmol/L (136-145); UREA NITROGEN 25 mg/dL (7-18); eGFR NON AFRICAN AMERICAN > 90 mL/min (90-120)
[2018-09-20 17:01] LABS: ANISOCYTOSIS 1+; EOSINOPHILS 4 % (0-7); LYMPHOCYTES 31 % (15-50); MONOCYTES 3 % (2-11); NEUTROPHILS 62 % (40-80); POLYCHROMASIA 1+
[2018-09-20 17:12] LABS: PLATELET ESTIMATE INCREASED
[2018-09-20 17:14] VITALS: BP 120/80
[2018-09-20 21:44] VITALS: BP 146/110
[2018-09-21 01:37] VITALS: BP 138/97
[2018-09-21 04:48] VITALS: BP 140/103
[2018-09-21 05:05] LABS: HEMATOCRIT 36.1 % (36.0-48.0); HEMOGLOBIN 13.3 g/dL (12-16); LYMPHOCYTES 32.2 % (15-50); MCH 35.5 pg (26.0-34.0); MCHC 36.8 g/dL (31.0-37.0); MCV 96.3 fL (80.0-100.0); MEAN PLATELET VOLUME 10.4 fL (7.4-10.4); NEUTROPHILS 59.6 % (40-80); PLATELET COUNT 533 10x3/uL (130-400); RBC 3.75 10x6/uL (4.00-5.40); RDW 18.4 % (11.5-14.5); WBC 15.3 10x3/uL (4.8-10.8)
[2018-09-21 05:09] LABS: CALC OSMOLALITY 281 mosm/kg (275-300); CALCIUM 9.6 mg/dL (8.5-10.1); CARBON DIOXIDE 22.9 mmol/L (21.0-32.0); CHLORIDE - SERUM 105 mmol/L (98-107); CREATININE - SERUM 0.7 mg/dL (0.6-1.3); GLUCOSE 92 mg/dL (74-106); SODIUM 140 mmol/L (136-145); UREA NITROGEN 22 mg/dL (7-18); eGFR NON AFRICAN AMERICAN > 90 mL/min (90-120)
[2018-09-21 08:30] VITALS: BP 127/90
[2018-09-21 10:52] VITALS: Ht 160 cm; Wt 54.4 kg
[2018-09-21 12:30] VITALS: BP 118/54
[2018-09-21 16:30] VITALS: BP 122/60
[2018-09-21 19:14] LABS: APPEARANCE CLEAR (CLEAR); BILIRUBIN NEGATIVE (NEGATIVE); COLOR YELLOW (YELLOW); GLUCOSE NEGATIVE (NEGATIVE); KETONE NEGATIVE (NEGATIVE); NITRITE NEGATIVE (NEGATIVE); PROTEIN NEGATIVE (NEGATIVE); UROBILINOGEN NORMAL (NORMAL)
[2018-09-21 21:48] VITALS: BP 103/75
[2018-09-22 00:55] VITALS: BP 122/86
[2018-09-22 05:25] LABS: CALC OSMOLALITY 282 mosm/kg (275-300); CALCIUM 9.6 mg/dL (8.5-10.1); CARBON DIOXIDE 24.7 mmol/L (21.0-32.0); CHLORIDE - SERUM 103 mmol/L (98-107); CREATININE - SERUM 0.7 mg/dL (0.6-1.3); GLUCOSE 92 mg/dL (74-106); SODIUM 140 mmol/L (136-145); UREA NITROGEN 24 mg/dL (7-18); eGFR NON AFRICAN AMERICAN > 90 mL/min (90-120)
[2018-09-22 05:28] LABS: BASOPHILS 0.6 % (0-2); EOSINOPHILS 1.9 % (0-7); HEMOGLOBIN 13.6 g/dL (12-16); IMMATURE GRANULOCYTES 1.2 % (0-5); LYMPHOCYTES 26.4 % (15-50); MCHC 34.9 g/dL (31.0-37.0); MCV 94.7 fL (80.0-100.0); MEAN PLATELET VOLUME 10.6 fL (7.4-10.4); MONOCYTES 8.7 % (2-11); NEUTROPHILS 61.2 % (40-80); RBC 4.12 10x6/uL (4.00-5.40); RDW 16.8 % (11.5-14.5); WBC 16.1 10x3/uL (4.8-10.8)
[2018-09-22 05:31] LABS: PLATELET COUNT 668 10x3/uL (130-400)
[2018-09-22 05:35] VITALS: BP 132/86
[2018-09-22 09:04] VITALS: BP 151/96
[2018-09-22 12:33] VITALS: BP 124/85
[2018-09-22 20:00] VITALS: BP 126/82
[2018-09-23 03:00] VITALS: BP 122/81
[2018-09-23 04:48] LABS: HEMOGLOBIN 12.8 g/dL (12-16); MCH 33.5 pg (26.0-34.0); MCHC 35.6 g/dL (31.0-37.0); MCV 94.2 fL (80.0-100.0); MEAN PLATELET VOLUME 10.3 fL (7.4-10.4); PLATELET COUNT 622 10x3/uL (130-400); RBC 3.82 10x6/uL (4.00-5.40); RDW 16.7 % (11.5-14.5); WBC 15.3 10x3/uL (4.8-10.8)
[2018-09-23 04:51] LABS: CALC OSMOLALITY 282 mosm/kg (275-300); CALCIUM 9.7 mg/dL (8.5-10.1); CARBON DIOXIDE 27.2 mmol/L (21.0-32.0); CHLORIDE - SERUM 102 mmol/L (98-107); CREATININE - SERUM 0.8 mg/dL (0.6-1.3); GLUCOSE 92 mg/dL (74-106); POTASSIUM - SERUM 4.6 mmol/L (3.5-5.1); SODIUM 140 mmol/L (136-145); UREA NITROGEN 24 mg/dL (7-18); eGFR NON AFRICAN AMERICAN 83 mL/min (90-120)
[2018-09-23 05:27] LABS: ANISOCYTOSIS 1+; EOSINOPHILS 7 % (0-7); LYMPHOCYTES 23 % (15-50); MONOCYTES 5 % (2-11); NEUTROPHILS 62 % (40-80); POLYCHROMASIA 1+; SICKLE CELLS OCC
[2018-09-23 05:34] LABS: PLATELET ESTIMATE INCREASED
[2018-09-23 11:03] VITALS: BP 129/48
[2018-09-23 14:55] VITALS: BP 118/87
[2018-09-23 18:31] VITALS: BP 117/73
[2018-09-23 20:00] VITALS: BP 125/75
[2018-09-24] VITALS: BP 118/63
[2018-09-24 03:00] VITALS: BP 116/54
[2018-09-24 09:10] VITALS: BP 100/66
--- NOTE | 2018-09-24 10:15 | MORECARE ---
CASE MANAGEMENT DISCHARGE SUMMARY PATIENT: RODRICK RAMIREZ HERNANDEZ UNIT: [id number] ADM DATE: 09/20/18 AGE: 43 : 77 SEX: F ROOM/BED: D.2201 AUTHOR: DORIAN GAMING PHYSICIAN: REFERRING PHYSICIAN: TARIQ DOCKERY MD DATE OF SERVICE: 09/24/18 Discharge Plan Patient Name: RODRICK RAMIREZ Facility: [facility]:[place] : 1975 Planned Disposition: Home Anticipated Discharge Date: 09/26/18 Discharge Date: Expected LOS: 6 Initial Reviewer: [email or web address] Initial Review Date: 09/24/2018 Generated: 09/24/18 11:15 am Comments DCP- Discharge Planning Updated by [email or web address]: Zoë Uribe on 09/24/18 9:[address] Patient Name: RODRICK RAMIREZ Admission Status: Elective Accout number: [id number] Admission Date: 09-20-2018 : 1975 Admission Diagnosis:HB-SS DISEASE WITH CRISIS, UNSPECIFIED Attending: TARIQ DOCKERY Current LOS: 4 Anticipated DC Date: 09-26-2018 Planned Disposition: Home Primary Insurance: MEDICAID [place] Discharge Planning Comments: CM MET WITH PATIENT REGARDING D/C NEEDS AND PLANS. PATIENT STATED SHE LIVES ALONE AND HER UNCLE GASTELUM STAYS WITH HER AT TIMES. THERE IS ONE STEP TO ENTER HER HOME AND NO STAIRS INSIDE. PATIENT STATED SHE IS INDEPENDENT WITH HER CARE AND HAS NO DME AT HOME. PATIENTS PCP IS DR. DOCKERY AND PHARMACY IS [facility]. PATIENT REFUSED HOME HEALTH WHEN OFFERED. PATIENT HAS A FRIEND JAIME COCHRAN THAT DRIVES HER PLACES (HE WAS AT BEDSIDE). CM WILL CONTINUE TO FOLLOW PATIENT WITH D/C NEEDS AND PLANS. PCP DR. [facility] ([facility]) [phone] OR [phone] Quality Engineer: Zoë Uribe DCPIA - Discharge Planning Initial Assessment Updated by [email or web address]: Zoë Uribe on 09/24/18 10:10 am * Is the patient Alert and Oriented? Yes * How many steps to enter\exit or inside your home? * PCP DR. DOCKERY * Pharmacy [facility] * Preadmission Environment Home Alone * ADLs Independent * Equipment None * List name and contact numbers for known caregivers / representatives who currently or will assist patient after discharge: JOSIE LUTZ ([place]) [phone] * Verbal permission to speak to the caregivers and representatives has been obtained from the patient. Yes * Additional services required to return to the preadmission environment? Yes * Can the patient safely return to the preadmission environment? Yes * Has this patient been hospitalized within the prior 30 days at any hospital? Yes Patient Name: RODRICK RAMIREZ Page 51430 at 1015 All edits/amendments must be made on the electronic document DICTATION DATE: 09/24/18 1014 CENTRIFUGAL SEPARATOR: JOSEPHINE 09/24/18 1014 RPT#: [id number] DC DATE: STATUS: ADM IN [facility] [address] [place] [address] END OF REPORT
[2018-09-24 12:58] LABS: HEMATOCRIT 33.9 % (36.0-48.0); HEMOGLOBIN 12.2 g/dL (12-16); MCH 33.5 pg (26.0-34.0); MCV 93.1 fL (80.0-100.0); MEAN PLATELET VOLUME 10.1 fL (7.4-10.4); PLATELET COUNT 674 10x3/uL (130-400); RBC 3.64 10x6/uL (4.00-5.40); RDW 16.3 % (11.5-14.5); WBC 15.7 10x3/uL (4.8-10.8)
[2018-09-24 13:02] VITALS: BP 128/85
[2018-09-24 13:19] LABS: BASOPHILS 2 % (0-2); LYMPHOCYTES 24 % (15-50); MONOCYTES 6 % (2-11); NEUTROPHILS 67 % (40-80); PLATELET ESTIMATE INCREASED; PLATELET MORPHOLOGY NORMAL PLT MORPH
[2018-09-24 17:32] VITALS: BP 102/64
[2018-09-24 20:00] VITALS: BP 113/82
[2018-09-25] VITALS: BP 110/71
[2018-09-25 03:00] VITALS: BP 115/63
[2018-09-25 08:52] VITALS: BP 110/71
[2018-09-25 10:13] LABS: HGB - A2 3.9 % (1.8-3.2); HGB - C 31.8 % (0.0); HGB - F 1.8 % (0.0-2.0); HGB - INTERPRETATION Note: (()); HGB - S 36.5 % (0.0); HGB - SOLUBILITY Positive (Negative)
[2018-09-25 13:40] VITALS: BP 111/65
[2018-09-25 16:00] VITALS: BP 109/70
[2018-09-25 21:00] VITALS: BP 90/39
[2018-09-26 04:48] VITALS: BP 92/58
[2018-09-26 05:27] LABS: BASOPHILS 0.5 % (0-2); EOSINOPHILS 3.5 % (0-7); HEMATOCRIT 32.9 % (36.0-48.0); HEMOGLOBIN 11.3 g/dL (12-16); IMMATURE GRANULOCYTES 0.5 % (0-5); LYMPHOCYTES 21.9 % (15-50); MCH 32.8 pg (26.0-34.0); MCHC 34.3 g/dL (31.0-37.0); MEAN PLATELET VOLUME 10.7 fL (7.4-10.4); MONOCYTES 8.2 % (2-11); NEUTROPHILS 65.4 % (40-80); PLATELET COUNT 717 10x3/uL (130-400); RBC 3.45 10x6/uL (4.00-5.40); RDW 16.2 % (11.5-14.5); WBC 13.2 10x3/uL (4.8-10.8)
[2018-09-26 05:32] LABS: MCV 95.4 fL (80.0-100.0)
[2018-09-26 05:35] LABS: CALCIUM 8.9 mg/dL (8.5-10.1); CARBON DIOXIDE 25.9 mmol/L (21.0-32.0); CREATININE - SERUM 0.9 mg/dL (0.6-1.3); POTASSIUM - SERUM 3.9 mmol/L (3.5-5.1)
[2018-09-26 08:00] VITALS: BP 103/57
[2018-09-26] MEDS ORDERED: PERCOCET 7.5/321 TAB PO (09:11)
--- NOTE | 2018-09-26 09:26 | MORECARE ---
CASE MANAGEMENT DISCHARGE SUMMARY PATIENT: RODRICK RAMIREZ HERNANDEZ UNIT: [id number] ADM DATE: 09/20/18 AGE: 43 : 77 SEX: F ROOM/BED: D.2201 AUTHOR: DORIAN GAMING PHYSICIAN: REFERRING PHYSICIAN: TARIQ DOCKERY MD DATE OF SERVICE: 09/26/18 Discharge Plan Patient Name: RODRICK RAMIREZ Facility: [facility]:[place] : 1975 Planned Disposition: Home Anticipated Discharge Date: 09/26/18 Discharge Date: Expected LOS: 6 Initial Reviewer: [email or web address] Initial Review Date: 09/24/2018 Generated: 09/26/18 10:25 am Comments DCP- Discharge Planning Updated by [email or web address]: Jessica Lazaro on 09/26/18 8:[address] Patient Name: RODRICK RAMIREZ Encounter No: [id number] : 1975 Primary Insurance: MEDICAID [place] Anticipated DC Date: 09-26-2018 Planned Disposition: Home External Planned Provider: : DCP follow-up note: Patient and family in agreement with discharge plan. No changes to plan. Case management will follow and assist as needed. Jessica Lazaro DCP- Discharge Planning Updated by [email or web address]: Zoë Uribe on 09/24/18 9:[address] Patient Name: RODRICK RAMIREZ Admission Status: Elective Accout number: [id number] Admission Date: 09-20-2018 : 1975 Admission Diagnosis:HB-SS DISEASE WITH CRISIS, UNSPECIFIED Attending: TARIQ DOCKERY Current LOS: 4 Anticipated DC Date: 09-26-2018 Planned Disposition: Home Primary Insurance: MEDICAID [place] Discharge Planning Comments: CM MET WITH PATIENT REGARDING D/C NEEDS AND PLANS. PATIENT STATED SHE LIVES ALONE AND HER UNCLE GASTELUM STAYS WITH HER AT TIMES. THERE IS ONE STEP TO ENTER HER HOME AND NO STAIRS INSIDE. PATIENT STATED SHE IS INDEPENDENT WITH HER CARE AND HAS NO DME AT HOME. PATIENTS PCP IS DR. DOCKERY AND PHARMACY IS [facility]. PATIENT REFUSED HOME HEALTH WHEN OFFERED. PATIENT HAS A FRIEND JAIME COCHRAN THAT DRIVES HER PLACES (HE WAS AT BEDSIDE). CM WILL CONTINUE TO FOLLOW PATIENT WITH D/C NEEDS AND PLANS. PCP DR. DOCKERY [facility] ([place]) [phone] OR [phone] Orchestra Conductor: Zoë Uribe DCPIA - Discharge Planning Initial Assessment Updated by [email or web address]: Zoë Uribe on 09/24/18 10:10 am * Is the patient Alert and Oriented? Yes * How many steps to enter\exit or inside your home? * PCP DR. DOCKERY * Pharmacy [facility] * Preadmission Environment Home Alone * ADLs Independent * Equipment None * List name and contact numbers for known caregivers / representatives who currently or will assist patient after discharge: JOSIE BOLIVAR ([place]) [phone] * Verbal permission to speak to the caregivers and representatives has been obtained from the patient. Yes * Additional services required to return to the preadmission environment? Yes * Can the patient safely return to the preadmission environment? Yes * Has this patient been hospitalized within the prior 30 days at any hospital? Yes Last DP export: 09/24/18 9:15 am Patient Name: RODRICK RAMIREZ Page 82861 at 0926 All edits/amendments must be made on the electronic document DICTATION DATE: 09/26/18924 PUDDLER HELPER: JOSEPHINE 09/26/18924 RPT#: [id number] DC DATE: STATUS: ADM IN [facility] [address] [place] [address] END OF REPORT
--- NOTE | 2018-09-28 09:53 | MORECARE ---
CASE MANAGEMENT DISCHARGE SUMMARY PATIENT: RODRICK RAMIREZ HERNANDEZ UNIT: [id number] ADM DATE: 09/20/18 AGE: 43 : 77 SEX: F ROOM/BED: D.2201 AUTHOR: DORIAN GAMING PHYSICIAN: REFERRING PHYSICIAN: TARIQ DOCKERY MD DATE OF SERVICE: 09/28/18 Discharge Plan Patient Name: RODRICK RAMIREZ Facility: [facility]:[place] : 1975 Planned Disposition: Home Anticipated Discharge Date: 09/26/18 Discharge Date: 09/26/2018 Expected LOS: 6 Initial Reviewer: [email or web address] Initial Review Date: 09/24/2018 Generated: 09/28/18 10:53 am Comments DCP- Discharge Planning Updated by [email or web address]: Jessica Lazaro on 09/26/18 8:[address] Patient Name: RODRICK RAMIREZ Encounter No: [id number] : 1975 Primary Insurance: MEDICAID [place] Anticipated DC Date: 09-26-2018 Planned Disposition: Home External Planned Provider: : DCP follow-up note: Patient and family in agreement with discharge plan. No changes to plan. Case management will follow and assist as needed. Jessica Lazaro DCP- Discharge Planning Updated by [id number]: Zoë Uribe on 09/24/18 9:[address] Patient Name: RODRICK RAMIREZ Admission Status: Elective Accout number: [id number] Admission Date: 09-20-2018 : 1975 Admission Diagnosis:HB-SS DISEASE WITH CRISIS, UNSPECIFIED Attending: TARIQ DOCKERY Current LOS: 4 Anticipated DC Date: 09-26-2018 Planned Disposition: Home Primary Insurance: MEDICAID [place] Discharge Planning Comments: CM MET WITH PATIENT REGARDING D/C NEEDS AND PLANS. PATIENT STATED SHE LIVES ALONE AND HER UNCLE GASTELUM STAYS WITH HER AT TIMES. THERE IS ONE STEP TO ENTER HER HOME AND NO STAIRS INSIDE. PATIENT STATED SHE IS INDEPENDENT WITH HER CARE AND HAS NO DME AT HOME. PATIENTS PCP IS DR. DOCKERY AND PHARMACY IS [facility]. PATIENT REFUSED HOME HEALTH WHEN OFFERED. PATIENT HAS A FRIEND JAIME COCHRAN THAT DRIVES HER PLACES (HE WAS AT BEDSIDE). CM WILL CONTINUE TO FOLLOW PATIENT WITH D/C NEEDS AND PLANS. PCP [facility] ([place]) [phone] OR [phone] Salesforce Specialist: Zoë Uribe DCPIA - Discharge Planning Initial Assessment Updated by [id number]: Zoë Uribe on 09/24/18 10:10 am * Is the patient Alert and Oriented? Yes * How many steps to enter\exit or inside your home? * PCP DR. DOCKERY * Pharmacy [facility] * Preadmission Environment Home Alone * ADLs Independent * Equipment None * List name and contact numbers for known caregivers / representatives who currently or will assist patient after discharge: JOSIE LUTZ ([place]) [phone] * Verbal permission to speak to the caregivers and representatives has been obtained from the patient. Yes * Additional services required to return to the preadmission environment? Yes * Can the patient safely return to the preadmission environment? Yes * Has this patient been hospitalized within the prior 30 days at any hospital? Yes Last DP export: 09/26/18 8:25 am Patient Name: RODRICK RAMIREZ Page 08220 at 0953 All edits/amendments must be made on the electronic document DICTATION DATE: 09/28/18952 GEAR DESIGN ENGINEER: JOSEPHINE 09/28/18952 RPT#: [id number] DC DATE:09/26/18 STATUS: DIS IN [facility] [address] [place] [address] END OF REPORT
== END 2018-09-26 09:43 | disposition home or self-care (01) | DRG 812 ==
LOC: D.SDCHOLD 13:32 → D.MS 13:39
PROVIDERS: Emergency Medicine; ADMIT Legal Medicine
PROC: 05HY33Z Insertion of Infusion Device into Upper Vein, Percutaneous Approach (ICD-10-PCS; principal; 2018-09-21)
DX: D57.00 Hb-SS disease with crisis, unspecified (principal); J40 Bronchitis, not specified as acute or chronic; I10 Essential (primary) hypertension; F41.9 Anxiety disorder, unspecified; D47.3 Essential (hemorrhagic) thrombocythemia

== ENCOUNTER 2018-10-03 15:28 | Emergency (ER) | payer MEDICAID ==
[~2018-10-03] VITALS: Ht 160 cm; Wt 50.0 kg
[~2018-10-03 15:28] MED LIST changes: +HYDRALAZINE HCL10 MG PO; +PERCOCET 7.5/321 TAB PO
[2018-10-03 15:35] VITALS: BP 141/102; Ht 160 cm; Wt 50.0 kg
[2018-10-03 16:31] LABS: BASOPHILS 0.6 % (0-2); EOSINOPHILS 1.2 % (0-7); HEMATOCRIT 35.8 % (36.0-48.0); HEMOGLOBIN 12.7 g/dL (12-16); IMMATURE GRANULOCYTES 0.3 % (0-5); LYMPHOCYTES 27.4 % (15-50); MCH 33.9 pg (26.0-34.0); MCHC 35.5 g/dL (31.0-37.0); MCV 95.5 fL (80.0-100.0); MEAN PLATELET VOLUME 9.9 fL (7.4-10.4); MONOCYTES 7.9 % (2-11); NEUTROPHILS 62.6 % (40-80); PLATELET COUNT 418 10x3/uL (130-400); RBC 3.75 10x6/uL (4.00-5.40); WBC 15.2 10x3/uL (4.8-10.8)
[2018-10-03 16:38] LABS: ALBUMIN 3.5 g/dL (3.4-5.0); BILIRUBIN - TOTAL 0.55 mg/dL (0.2-1.3); CARBON DIOXIDE 19.4 mmol/L (21.0-32.0); PROTEIN - SERUM 7.2 g/dL (6.4-8.2)
[2018-10-03 16:45] LABS: CALCIUM 10.2 mg/dL (8.5-10.1)
[2018-10-03 16:48] LABS: ANION GAP 24.5 mmol/L (8-16); POTASSIUM - SERUM 4.9 mmol/L (3.5-5.1)
== END 2018-10-03 18:24 | disposition home or self-care (01) ==
LOC: D.ER 15:28
PROVIDERS: Family Medicine
DX: D57.00 Hb-SS disease with crisis, unspecified (principal); Z91.14 Patient's other noncompliance with medication regimen; M79.605 Pain in left leg; M79.604 Pain in right leg; F17.200 Nicotine dependence, unspecified, uncomplicated

== ENCOUNTER 2018-10-17 12:47 | Emergency (ER) | payer MEDICAID ==
[~2018-10-17] VITALS: Ht 160 cm; Wt 56.8 kg
[2018-10-17 12:50] VITALS: BP 134/84; Ht 160 cm; Wt 56.8 kg
== END 2018-10-17 14:27 | disposition home or self-care (01) ==
LOC: D.ER 12:47
DX: M79.605 Pain in left leg (principal); D57.1 Sickle-cell disease without crisis

== ENCOUNTER 2018-10-23 09:14 | Emergency (ER) | payer MEDICAID ==
[~2018-10-23] VITALS: Ht 160 cm; Wt 54.1 kg
[2018-10-23 09:18] VITALS: BP 113/89; Ht 160 cm; Wt 54.1 kg
== END 2018-10-23 10:03 | disposition home or self-care (01) ==
LOC: D.ER 09:14
DX: M79.605 Pain in left leg (principal); M79.604 Pain in right leg; D57.1 Sickle-cell disease without crisis; I10 Essential (primary) hypertension; F17.200 Nicotine dependence, unspecified, uncomplicated

== ENCOUNTER 2018-12-06 19:26 | Emergency (ER) | payer MEDICAID ==
[~2018-12-06] VITALS: Ht 160 cm; Wt 55.0 kg
[2018-12-06 19:41] VITALS: Ht 160 cm; Wt 55.0 kg
[2018-12-06] MEDS ORDERED: TRAZODONE HCL150 MG PO (19:43)
[2018-12-06] MEDS ORDERED: PERCOCET 10-321 EAC1 PO (19:44)
[2018-12-06 20:06] LABS: HEMATOCRIT 33.3 % (36.0-48.0); HEMOGLOBIN 12.7 g/dL (12-16); MCH 35.4 pg (26.0-34.0); MCHC 38.1 g/dL (31.0-37.0); MCV 92.8 fL (80.0-100.0); MEAN PLATELET VOLUME 9.5 fL (7.4-10.4); PLATELET COUNT 343 10x3/uL (130-400); RBC 3.59 10x6/uL (4.00-5.40); RDW 15.4 % (11.5-14.5); WBC 17.9 10x3/uL (4.8-10.8)
[2018-12-06 20:16] LABS: APTT 28.7 SECONDS (22.8-39.4); INR 1.04 (0.85-1.17); PROTIME 13.1 SECONDS (11.6-15.0)
[2018-12-06 20:17] LABS: D-DIMER-QUANTITATIVE 0.76 ug/mLFEU (0.20-0.54)
[2018-12-06 20:26] LABS: ALBUMIN 3.6 g/dL (3.4-5.0); ALKALINE PHOSPHATASE 109 U/L (46-116); ALT (SGPT) 45 U/L (10-68); BILIRUBIN - TOTAL 1.05 mg/dL (0.2-1.3); CALC OSMOLALITY 283 mosm/kg (275-300); CALCIUM 8.8 mg/dL (8.5-10.1); CARBON DIOXIDE 24.7 mmol/L (21.0-32.0); CHLORIDE - SERUM 104 mmol/L (98-107); CREATININE - SERUM 0.7 mg/dL (0.6-1.3); GLUCOSE 109 mg/dL (74-106); POTASSIUM - SERUM 3.9 mmol/L (3.5-5.1); SODIUM 139 mmol/L (136-145); UREA NITROGEN 27 mg/dL (7-18); eGFR NON AFRICAN AMERICAN > 90 mL/min (90-120)
[2018-12-06] MEDS ORDERED: VOLTAREN75 MG PO (20:44)
[2018-12-06 20:58] VITALS: BP 124/74
[2018-12-06 21:10] LABS: EOSINOPHILS 1 % (0-7); LYMPHOCYTES 32 % (15-50); MONOCYTES 8 % (2-11); NEUTROPHILS 59 % (40-80); PLATELET ESTIMATE NORMAL
[2018-12-06 21:11] LABS: ANISOCYTOSIS 1+; POIKILOCYTOSIS 1+
== END 2018-12-06 20:58 | disposition home or self-care (01) ==
LOC: D.ER 19:26
PROVIDERS: Emergency Medicine
DX: M79.605 Pain in left leg (principal)

== ENCOUNTER 2019-01-06 16:35 | Emergency (ER) | payer MEDICAID ==
[~2019-01-06] VITALS: Ht 160 cm; Wt 54.5 kg
[~2019-01-06 16:35] MED LIST changes: +PERCOCET 10-321 EAC1 PO; +TRAZODONE HCL150 MG PO
[2019-01-06 16:49] VITALS: BP 120/62; Ht 160 cm; Wt 54.5 kg
[2019-01-06 17:32] LABS: BASOPHILS 0.3 % (0-2); EOSINOPHILS 1.5 % (0-7); HEMATOCRIT 34.5 % (36.0-48.0); HEMOGLOBIN 12.9 g/dL (12-16); IMMATURE GRANULOCYTES 0.7 % (0-5); MCH 33.4 pg (26.0-34.0); MCHC 37.4 g/dL (31.0-37.0); MCV 89.4 fL (80.0-100.0); MEAN PLATELET VOLUME 9.7 fL (7.4-10.4); MONOCYTES 9.7 % (2-11); NEUTROPHILS 70.8 % (40-80); PLATELET COUNT 356 10x3/uL (130-400); RBC 3.86 10x6/uL (4.00-5.40); RDW 14.7 % (11.5-14.5); WBC 16.7 10x3/uL (4.8-10.8)
[2019-01-06 18:03] LABS: ALBUMIN 3.7 g/dL (3.4-5.0); ANION GAP 15.2 mmol/L (8-16); BILIRUBIN - TOTAL 1.14 mg/dL (0.2-1.3); CARBON DIOXIDE 23.9 mmol/L (21.0-32.0); POTASSIUM - SERUM 4.1 mmol/L (3.5-5.1); PROTEIN - SERUM 7.2 g/dL (6.4-8.2)
== END 2019-01-06 18:03 | disposition left against medical advice (07) ==
LOC: D.ER 16:35
PROVIDERS: Emergency Medicine
DX: G89.29 Other chronic pain (principal); Z76.5 Malingerer [conscious simulation]

== ENCOUNTER 2019-03-18 16:31 | Inpatient (IN) | payer MEDICAID ==
[~2019-03-18] VITALS: Ht 160 cm; Wt 54.4 kg
[2019-03-18 18:38] LABS: BASOPHILS 0.3 % (0-2); EOSINOPHILS 0.7 % (0-7); HEMATOCRIT 33.5 % (36.0-48.0); HEMOGLOBIN 12.6 g/dL (12-16); IMMATURE GRANULOCYTES 0.6 % (0-5); LYMPHOCYTES 17.1 % (15-50); MCH 34.8 pg (26.0-34.0); MCHC 37.6 g/dL (31.0-37.0); MCV 92.5 fL (80.0-100.0); MEAN PLATELET VOLUME 9.4 fL (7.4-10.4); MONOCYTES 7.6 % (2-11); NEUTROPHILS 73.7 % (40-80); PLATELET COUNT 313 10x3/uL (130-400); RBC 3.62 10x6/uL (4.00-5.40); WBC 17.8 10x3/uL (4.8-10.8)
[2019-03-18 19:19] LABS: ALBUMIN 3.5 g/dL (3.4-5.0); ALKALINE PHOSPHATASE 124 U/L (46-116); ALT (SGPT) 14 U/L (10-68); BILIRUBIN - TOTAL 0.68 mg/dL (0.2-1.3); CALC OSMOLALITY 281 mosm/kg (275-300); CARBON DIOXIDE 25.9 mmol/L (21.0-32.0); CHLORIDE - SERUM 106 mmol/L (98-107); CREATININE - SERUM 0.8 mg/dL (0.6-1.3); GLUCOSE 106 mg/dL (74-106); POTASSIUM - SERUM 3.8 mmol/L (3.5-5.1); PROTEIN - SERUM 6.8 g/dL (6.4-8.2); SODIUM 141 mmol/L (136-145); UREA NITROGEN 15 mg/dL (7-18); eGFR NON AFRICAN AMERICAN 83 mL/min (90-120)
--- NOTE | 2019-03-18 19:25 | NUR ---
ATTEMPTED IV X 2. GENNY ALMANZAR RN MADE AWARE.
--- NOTE | 2019-03-18 20:00 | NUR ---
RECEIVED PT TO FLOOR FROM ER VIA STRETCHER. PT AMBULATED FROM STRETCHER TO BED. PT ATE TWO SANDWICHES SHORTLY AFTER ARRIVING TO ROOM. C/O GENERALIZED PAIN 03/31. REVIEWED HOME MEDS AND HISTORY. NO OTHER NEEDS. WILL CONTINUE TO MONITOR.
[2019-03-19] VITALS (7 sets, daily range): BP systolic 91–136; BP diastolic 53–81; BMI 21.3
[2019-03-19 05:10] LABS: CALC OSMOLALITY 273 mosm/kg (275-300); CALCIUM 8.3 mg/dL (8.5-10.1); CARBON DIOXIDE 27.7 mmol/L (21.0-32.0); CHLORIDE - SERUM 108 mmol/L (98-107); CREATININE - SERUM 0.6 mg/dL (0.6-1.3); GLUCOSE 80 mg/dL (74-106); POTASSIUM - SERUM 3.5 mmol/L (3.5-5.1); SODIUM 138 mmol/L (136-145); eGFR NON AFRICAN AMERICAN > 90 mL/min (90-120)
[2019-03-19 05:22] LABS: UREA NITROGEN 9 mg/dL (7-18)
[2019-03-19 05:42] LABS: BASOPHILS 0.2 % (0-2); EOSINOPHILS 0.9 % (0-7); HEMATOCRIT 27.7 % (36.0-48.0); HEMOGLOBIN 10.3 g/dL (12-16); IMMATURE GRANULOCYTES 0.5 % (0-5); LYMPHOCYTES 19.4 % (15-50); MCH 34.3 pg (26.0-34.0); MCHC 37.2 g/dL (31.0-37.0); MCV 92.3 fL (80.0-100.0); MEAN PLATELET VOLUME 9.8 fL (7.4-10.4); MONOCYTES 7.7 % (2-11); NEUTROPHILS 71.3 % (40-80); PLATELET COUNT 317 10x3/uL (130-400); RDW 16.2 % (11.5-14.5); WBC 16.5 10x3/uL (4.8-10.8)
--- NOTE | 2019-03-19 07:40 | NUR ---
UP TO BR WITH MIN ASSIST OF ONE. VOIDED CLEAR YELLOW URINE WITHOUT DIFFICULTY. REQUESTED AND GIVEN ONE PERCOCET PO FOR C/O GENERALIZED PAIN LEVEL 10. WILL MONITOR. LUNGS ARE CLEAR BILATERALLY, NO COUGH NOTED. SKIN IS INTACT WITHOUT REDNESS. IV TO LEFT THUMB IS PATENT WITHOUT REDNESS AT INSERTION SITE. DENIES FURTHER NEEDS.
--- NOTE | 2019-03-19 09:30 | NUR ---
ATE ALL OF BREAKFAST. RESTING QUIETLY IWTH EYES CLOSED.
--- NOTE | 2019-03-19 12:00 | NUR ---
LUNCH SERVED IN ROOM. DENIES NEEDS.
--- NOTE | 2019-03-19 13:00 | NUR ---
ATE ALL OF LUNCH. DENIES NEEDS.
--- NOTE | 2019-03-19 13:20 | NUR ---
C/O GENERALIZED PAIN RATING 8/10 ON PAIN SCALE WAS MEDICATED WITH PERCOCET PER ORDERS. C/L IN REACH AT BEDSIDE.
--- NOTE | 2019-03-19 20:45 | NUR ---
PT JUST RETURNED TO THE ROOM FROM GOING OUT TO SMOKE, REHOOKED HER IV. BREATHING EVEN AND NONLABORED. REPORTS PAIN 6/10 IN HER BACK AT THIS TIME, BUT SLIGHT GENERALIZED PAIN ALL OVER HER BODY. WILL GIVE HER PERCOCET WHEN IT IS TIME. DENIES ANY FURTHER NEEDS AT THIS TIME. BED LOW, CALL LIGHT IN REACH, RAILS UP X 2. WILL CONTINUE TO MONITOR.
[2019-03-20 04:00] VITALS: BP 114/69
[2019-03-20 06:20] LABS: BASOPHILS 0.3 % (0-2); EOSINOPHILS 2.4 % (0-7); HEMATOCRIT 25.3 % (36.0-48.0); HEMOGLOBIN 9.4 g/dL (12-16); IMMATURE GRANULOCYTES 0.3 % (0-5); LYMPHOCYTES 24.6 % (15-50); MCH 34.3 pg (26.0-34.0); MCHC 37.2 g/dL (31.0-37.0); MCV 92.3 fL (80.0-100.0); MEAN PLATELET VOLUME 9.9 fL (7.4-10.4); MONOCYTES 5.3 % (2-11); NEUTROPHILS 67.1 % (40-80); PLATELET COUNT 275 10x3/uL (130-400); RBC 2.74 10x6/uL (4.00-5.40); RDW 17.5 % (11.5-14.5); WBC 13.3 10x3/uL (4.8-10.8)
[2019-03-20 06:47] LABS: CALCIUM 8.2 mg/dL (8.5-10.1); CARBON DIOXIDE 24.8 mmol/L (21.0-32.0); CREATININE - SERUM 0.7 mg/dL (0.6-1.3); eGFR NON AFRICAN AMERICAN > 90 mL/min (90-120)
[2019-03-20 06:50] LABS: GLUCOSE 126 mg/dL (74-106); UREA NITROGEN 6 mg/dL (7-18)
[2019-03-20 07:49] LABS: CALC OSMOLALITY 286 mosm/kg (275-300); CHLORIDE - SERUM 110 mmol/L (98-107); POTASSIUM - SERUM 4.5 mmol/L (3.5-5.1); SODIUM 144 mmol/L (136-145)
[2019-03-20 08:36] VITALS: BP 107/67
--- NOTE | 2019-03-20 08:37 | NUR ---
AWAKE AND ALERT. ORIENTED X3. REQUESTED AND GIVEN 2MG DILAUDID SLOW IVP FOR C/O BACK AND GENERALIZED PAIN LEVEL 7. WILL MONITOR. LUNGS ARE CLEAR BILATERALLY, NO COUGH NOTED. SKIN IS INTACT WITHOUT REDNESS. IV TO RIGHT HAND IS PATENT WTIHOUT REDNESS AT INSERTION SITE. DENIES NEEDS.
--- NOTE | 2019-03-20 09:00 | NUR ---
ATE ALL OF BREAKFAST SHE WANTED. NO C/O PAIN AT THIS TIME. DENIES NEEDS.
--- NOTE | 2019-03-20 10:30 | NUR ---
RESTING QUIETLY WTIH EYES CLOSED. NO NEEDS NOTED.
--- NOTE | 2019-03-20 12:30 | NUR ---
OFF UNIT VIA WC WITH VISITOR. DENIES NEEDS.
--- NOTE | 2019-03-20 12:57 | NUR ---
REQUESTED AND GIVEN ONE PERCOCET PO FOR C/O GENERALIZED PAIN LEVEL 7. WILL MONITOR.
--- NOTE | 2019-03-20 14:18 | NUR ---
RESTING QUIETLY IN BED WITH EYES CLOSED.
--- NOTE | 2019-03-20 15:34 | NUR ---
IV TO LEFT HAND SWOLLEN. D/C WITH CATHEETER INTACT. RESITED TO RIGHT THUMB AFTER 2 ATTEMPTS WITH 22G. TOLERATED WITHOUT C/O. UP TO SHOWER WITH SET UP ASSIST.
[2019-03-20 17:36] VITALS: BP 115/76
--- NOTE | 2019-03-20 18:20 | NUR ---
ATE ALL OF SUPPER. DENIES NEEDS. NO CHANGES NOTED.
[2019-03-20 20:00] VITALS: BP 100/65
--- NOTE | 2019-03-20 20:00 | NUR ---
PT JUST RETURNING TO ROOM FROM GOING FOR A WALK. BREATHING EVEN AND UNLABORED, NO SIGNS OF DISTRESS. ALERT AND ORIENTED. DENIES ANY NEEDS AT THIS TIME. WILL CONTINUE TO MONITOR.
[2019-03-21] VITALS: BP 136/82
[2019-03-21 04:00] VITALS: BP 131/74
[2019-03-21 04:32] LABS: BASOPHILS 0.3 % (0-2); EOSINOPHILS 2.9 % (0-7); HEMATOCRIT 23.9 % (36.0-48.0); HEMOGLOBIN 9.1 g/dL (12-16); IMMATURE GRANULOCYTES 0.5 % (0-5); LYMPHOCYTES 20.3 % (15-50); MCH 35.4 pg (26.0-34.0); MCHC 38.1 g/dL (31.0-37.0); MEAN PLATELET VOLUME 9.2 fL (7.4-10.4); MONOCYTES 5.8 % (2-11); NEUTROPHILS 70.2 % (40-80); PLATELET COUNT 222 10x3/uL (130-400); RBC 2.57 10x6/uL (4.00-5.40); RDW 18.5 % (11.5-14.5); WBC 13.8 10x3/uL (4.8-10.8)
[2019-03-21 05:01] LABS: CALC OSMOLALITY 284 mosm/kg (275-300); CALCIUM 8.4 mg/dL (8.5-10.1); CARBON DIOXIDE 25.6 mmol/L (21.0-32.0); CHLORIDE - SERUM 109 mmol/L (98-107); CREATININE - SERUM 0.8 mg/dL (0.6-1.3); GLUCOSE 114 mg/dL (74-106); POTASSIUM - SERUM 4.1 mmol/L (3.5-5.1); SODIUM 144 mmol/L (136-145); UREA NITROGEN 5 mg/dL (7-18); eGFR NON AFRICAN AMERICAN 83 mL/min (90-120)
--- NOTE | 2019-03-21 08:45 | NUR ---
PATIENT REQUESTS TO BE UNHOOKED FROM THE IV SO SHE COULD GO GET SOME FRESH AIR WITH HER FRIEND. Robert GARCIA IN ROOM. CL IN REACH TM
[2019-03-21 08:47] LABS: CKMB 0.1 U/L (0.0-3.6); CREATINE KINASE 39 UL (21-215)
[2019-03-21 08:48] LABS: TROPONIN-I < 0.017 ng/mL (0.000-0.060)
[2019-03-21 13:57] VITALS: BP 116/81
[2019-03-21 16:24] VITALS: BP 118/80
[2019-03-21 21:15] VITALS: BP 118/80
[2019-03-22 01:38] VITALS: BP 107/72
[2019-03-22 05:11] VITALS: BP 124/74
[2019-03-22 08:30] VITALS: BP 101/71
[2019-03-22 13:34] VITALS: BP 119/81
[2019-03-22 14:15] VITALS: Ht 160 cm; Wt 54.4 kg
[2019-03-22 17:53] VITALS: BP 115/88
[2019-03-22 20:25] VITALS: BP 132/94
[2019-03-23 00:12] VITALS: BP 132/95
[2019-03-23 06:35] VITALS: BP 134/88
[2019-03-23 06:48] LABS: CALC OSMOLALITY 274 mosm/kg (275-300); CALCIUM 9.1 mg/dL (8.5-10.1); CARBON DIOXIDE 26.4 mmol/L (21.0-32.0); CHLORIDE - SERUM 104 mmol/L (98-107); CREATININE - SERUM 0.8 mg/dL (0.6-1.3); GLUCOSE 98 mg/dL (74-106); POTASSIUM - SERUM 3.8 mmol/L (3.5-5.1); SODIUM 138 mmol/L (136-145); UREA NITROGEN 9 mg/dL (7-18); eGFR NON AFRICAN AMERICAN 83 mL/min (90-120)
--- NOTE | 2019-03-23 07:25 | NUR ---
LYING IN BED,WITHOUT SIGNS OF DISTRESS.MONITOR
[2019-03-23 07:40] LABS: HEMATOCRIT 24.4 % (36.0-48.0); MCH 34.6 pg (26.0-34.0); MCHC 36.9 g/dL (31.0-37.0); MCV 93.8 fL (80.0-100.0); MEAN PLATELET VOLUME 9.5 fL (7.4-10.4); RDW 18.2 % (11.5-14.5); WBC 11.6 10x3/uL (4.8-10.8)
[2019-03-23 07:47] LABS: PLATELET COUNT 292 10x3/uL (130-400)
[2019-03-23 08:34] VITALS: BP 108/71
--- NOTE | 2019-03-23 09:52 | NUR ---
PT LEFT UNIT TO GO OUTSIDE.
--- NOTE | 2019-03-23 10:00 | NUR ---
ASSESSMENT PER FLOW SHEET. PT IS WITHOUT DISTRESS.CALL LIGHT IN REACH
[2019-03-23 10:41] LABS: EOSINOPHILS 4 % (0-7); LYMPHOCYTES 27 % (15-50); MONOCYTES 14 % (2-11); NEUTROPHILS 54 % (40-80); PLATELET ESTIMATE NORMAL
[2019-03-23 10:42] LABS: ANISOCYTOSIS 1+; POIKILOCYTOSIS OCC; POLYCHROMASIA OCC; SICKLE CELLS OCC; SMUDGE CELLS OCC
[2019-03-23 12:48] VITALS: BP 128/95
--- NOTE | 2019-03-23 14:02 | NUR ---
REMAINS WITHOUT NEEDS. SHE IS RESTING AFTER MEDS ORDERED
--- NOTE | 2019-03-23 15:45 | NUR ---
SLEEPING ON RIGHT SIDE,WITHOUT NEEDS
[2019-03-23 16:45] VITALS: BP 138/97
--- NOTE | 2019-03-23 16:51 | MORECARE ---
CASE MANAGEMENT DISCHARGE SUMMARY PATIENT: RODRICK RAMIREZ HERNANDEZ UNIT: [id number] ADM DATE: 03/18/19 AGE: 43 : 77 SEX: F ROOM/BED: D.2207 AUTHOR: DORIAN GAMING PHYSICIAN: REFERRING PHYSICIAN: TARIQ DOCKERY MD DATE OF SERVICE: 03/23/19 Discharge Plan Patient Name: RODRICK RAMIREZ Facility: [facility]:[place] : 1975 Planned Disposition: Home Anticipated Discharge Date: Discharge Date: Expected LOS: Initial Reviewer: [email or web address] Initial Review Date: 03/23/2019 Generated: 03/23/19 5:51 pm Comments DCP- Discharge Planning Updated by [email or web address]: Cassandra Hong on 03/23/19 3:[address] CM attempted to meet with patient, she is not in the room. CM will meet at a later time. CM will continue to follow and assist with discharge planning/needs. Patient Name: RODRICK RAMIREZ Page 38040 at 1651 All edits/amendments must be made on the electronic document DICTATION DATE: 03/23/191650 CORPORATE DEVELOPMENT MANAGER: JOSEPHINE 03/23/191650 RPT#: [id number] DC DATE: STATUS: ADM IN [facility] [address] [place] [address] END OF REPORT
--- NOTE | 2019-03-23 18:25 | NUR ---
PT IS WITHOUT DISTRESS.COMPANY AT BEDSIDE.WITHOUT CHANGE.CONT PLAN OF CARE
[2019-03-23 20:00] VITALS: BP 102/65
[2019-03-24] VITALS: BP 99/68
[2019-03-24 04:00] VITALS: BP 89/51
[2019-03-24 06:25] LABS: BASOPHILS 0.3 % (0-2); EOSINOPHILS 3.4 % (0-7); HEMATOCRIT 25.8 % (36.0-48.0); HEMOGLOBIN 9.6 g/dL (12-16); IMMATURE GRANULOCYTES 0.5 % (0-5); MCH 35.4 pg (26.0-34.0); MCHC 37.2 g/dL (31.0-37.0); MCV 95.2 fL (80.0-100.0); MONOCYTES 8.7 % (2-11); NEUTROPHILS 68.1 % (40-80); PLATELET COUNT 316 10x3/uL (130-400); RBC 2.71 10x6/uL (4.00-5.40); WBC 12.4 10x3/uL (4.8-10.8)
[2019-03-24 06:31] LABS: CALC OSMOLALITY 275 mosm/kg (275-300); CARBON DIOXIDE 22.1 mmol/L (21.0-32.0); CHLORIDE - SERUM 105 mmol/L (98-107); GLUCOSE 94 mg/dL (74-106); SODIUM 139 mmol/L (136-145); UREA NITROGEN 8 mg/dL (7-18)
[2019-03-24 06:36] LABS: CREATININE - SERUM 0.5 mg/dL (0.6-1.3); POTASSIUM - SERUM 5.4 mmol/L (3.5-5.1); eGFR NON AFRICAN AMERICAN > 90 mL/min (90-120)
--- NOTE | 2019-03-24 08:00 | NUR ---
ASSESSMENT PER FLOW SHEET. PT IS WITHOUT DISTRESS.MONITOR FOR NEEDS.
[2019-03-24 08:45] VITALS: BP 121/81
--- NOTE | 2019-03-24 11:15 | NUR ---
REQUESTED AND GIVEN ONE PERCOCET PO FOR C/O GENERALIZED PAIN LVEL 6. WILL MONITOR.
--- NOTE | 2019-03-24 11:43 | NUR ---
DISCHARGE INSTRUCTIONS,STATES UNDERSTANDING.IV DCD WITH CATH TIP INTACT.WAITING ON RIDE
--- NOTE | 2019-03-24 11:54 | NUR ---
LEFT UNIT FOR TRANSPORT HOME
--- NOTE | 2019-03-26 11:36 | MORECARE ---
CASE MANAGEMENT DISCHARGE SUMMARY PATIENT: RODRICK RAMIREZ HERNANDEZ UNIT: [id number] ADM DATE: 03/18/19 AGE: 43 : 77 SEX: F ROOM/BED: D.2207 AUTHOR: DORIAN GAMING PHYSICIAN: REFERRING PHYSICIAN: TARIQ DOCKERY MD DATE OF SERVICE: 03/26/19 Discharge Plan Patient Name: RODRICK RAMIREZ Facility: [facility]:[place] : 1975 Planned Disposition: Home Anticipated Discharge Date: Discharge Date: 03/24/2019 Expected LOS: Initial Reviewer: [email or web address] Initial Review Date: 03/23/2019 Generated: 03/26/19 12:36 pm Comments DCP- Discharge Planning Updated by [email or web address]: Cassandra Hong on 03/23/19 3:[address] CM attempted to meet with patient, she is not in the room. CM will meet at a later time. CM will continue to follow and assist with discharge planning/needs. Last DP export: 03/23/19 3:51 pm Patient Name: RODRICK RAMIREZ Page 38252 at 1136 All edits/amendments must be made on the electronic document DICTATION DATE: 03/26/19 113 CLINICAL NUTRITIONIST: JOSEPHINE 03/26/19 1136 RPT#: [id number] DC DATE:03/24/19 STATUS: DIS IN [facility] [address] [place] [address] END OF REPORT
== END 2019-03-24 11:55 | disposition home or self-care (01) | DRG 812 ==
LOC: D.ER 16:31 → D.MS 18:58
PROVIDERS: Emergency Medicine; Family Medicine; ADMIT Legal Medicine; ATTEND Legal Medicine
DX: D57.00 Hb-SS disease with crisis, unspecified (principal); D72.829 Elevated white blood cell count, unspecified

== ENCOUNTER 2019-07-08 14:03 | Emergency (ER) | payer MEDICAID ==
[~2019-07-08] VITALS: Ht 160 cm; Wt 68.2 kg
[2019-07-08 14:09] VITALS: Ht 160 cm; Wt 68.2 kg
[2019-07-08] MEDS ORDERED: MUCINEX DM ER1 EAC1 PO (15:25)
[2019-07-08 15:33] VITALS: BP 132/86
== END 2019-07-08 15:34 | disposition home or self-care (01) ==
LOC: D.ER 14:03
DX: J02.9 Acute pharyngitis, unspecified (principal); R05 Cough; R52 Pain, unspecified; R68.83 Chills (without fever); R61 Generalized hyperhidrosis; D57.1 Sickle-cell disease without crisis

== ENCOUNTER 2019-07-21 10:05 | Emergency (ER) | payer MEDICAID ==
[~2019-07-21] VITALS: Ht 160 cm; Wt 50.0 kg
[~2019-07-21 10:05] MED LIST changes: +MUCINEX DM ER1 EAC1 PO
[2019-07-21 10:10] VITALS: Ht 160 cm; Wt 50.0 kg
[2019-07-21] MEDS ORDERED: ZPAK PO (11:26)
[2019-07-21] MEDS ORDERED: ALBUTEROL SULF8.5 GM INH (11:26)
[2019-07-21] MEDS ORDERED: TESSALON PERLE100 MG PO (11:26)
[2019-07-21 11:40] VITALS: BP 132/79
== END 2019-07-21 11:40 | disposition home or self-care (01) ==
LOC: D.ER 10:05
DX: J40 Bronchitis, not specified as acute or chronic (principal); F17.210 Nicotine dependence, cigarettes, uncomplicated

== ENCOUNTER 2019-07-25 13:31 | Inpatient (IN) | payer MEDICAID ==
[~2019-07-25] VITALS: Ht 160 cm; Wt 63.5 kg
[~2019-07-25 13:31] MED LIST changes: +ALBUTEROL SULF8.5 GM INH; +TESSALON PERLE100 MG PO
[2019-07-25 15:07] LABS: HEMATOCRIT 38.6 % (36.0-48.0); HEMOGLOBIN 13.7 g/dL (12-16); MCH 34.9 pg (26.0-34.0); MCHC 35.5 g/dL (31.0-37.0); MCV 98.2 fL (80.0-100.0); MEAN PLATELET VOLUME 10.1 fL (7.4-10.4); PLATELET COUNT 431 10x3/uL (130-400); RBC 3.93 10x6/uL (4.00-5.40); RDW 21.4 % (11.5-14.5); WBC 20.1 10x3/uL (4.8-10.8)
[2019-07-25 15:30] LABS: ALBUMIN 3.6 g/dL (3.4-5.0); ALKALINE PHOSPHATASE 130 U/L (46-116); ALT (SGPT) 29 U/L (10-68); BILIRUBIN - TOTAL 2.61 mg/dL (0.2-1.3); CALC OSMOLALITY 281 mosm/kg (275-300); CALCIUM 9.4 mg/dL (8.5-10.1); CARBON DIOXIDE 22.7 mmol/L (21.0-32.0); CHLORIDE - SERUM 105 mmol/L (98-107); CREATININE - SERUM 0.7 mg/dL (0.6-1.3); GLUCOSE 94 mg/dL (74-106); POTASSIUM - SERUM 4.1 mmol/L (3.5-5.1); PROTEIN - SERUM 7.8 g/dL (6.4-8.2); SODIUM 142 mmol/L (136-145); UREA NITROGEN 9 mg/dL (7-18); eGFR NON AFRICAN AMERICAN > 90 mL/min (90-120)
[2019-07-25 15:38] LABS: LYMPHOCYTES 20 % (15-50); MONOCYTES 5 % (2-11); NEUTROPHILS 75 % (40-80); PLATELET ESTIMATE NORMAL
[2019-07-25 15:39] LABS: SICKLE CELLS 1+
--- NOTE | 2019-07-25 16:28 | NUR ---
PT LYING IN BED ASLEEP. NO DISTRESS NOTED
--- NOTE | 2019-07-25 17:27 | NUR ---
DINNER TRAY ORDERED
[2019-07-25 21:57] VITALS: BP 128/81
[2019-07-25 22:00] VITALS: BP 128/81; BMI 24.8
[2019-07-26 01:38] LABS: APPEARANCE CLEAR (CLEAR); BILIRUBIN NEGATIVE (NEGATIVE); COLOR YELLOW (YELLOW); GLUCOSE NEGATIVE (NEGATIVE); KETONE NEGATIVE (NEGATIVE); NITRITE NEGATIVE (NEGATIVE); PROTEIN TRACE mg/dL (NEGATIVE); UROBILINOGEN NORMAL (NORMAL)
--- NOTE | 2019-07-26 02:04 | NUR ---
patient in bed alert and orented able to voice needs and wants to staff. o2 at 3l via n/c , iv to right fa with ns at 125ml/hr. remains on bedrest. water and call light in reach.
[2019-07-26 02:42] VITALS: BP 125/82
[2019-07-26 06:49] VITALS: BP 153/85
[2019-07-26 07:15] LABS: ALBUMIN 2.8 g/dL (3.4-5.0); ALKALINE PHOSPHATASE 103 U/L (46-116); ALT (SGPT) 25 U/L (10-68); BILIRUBIN - TOTAL 1.17 mg/dL (0.2-1.3); CALC OSMOLALITY 274 mosm/kg (275-300); CALCIUM 8.6 mg/dL (8.5-10.1); CARBON DIOXIDE 22.7 mmol/L (21.0-32.0); CHLORIDE - SERUM 106 mmol/L (98-107); CREATININE - SERUM 0.6 mg/dL (0.6-1.3); GLUCOSE 122 mg/dL (74-106); PROTEIN - SERUM 6.7 g/dL (6.4-8.2); SODIUM 138 mmol/L (136-145); UREA NITROGEN 7 mg/dL (7-18); eGFR NON AFRICAN AMERICAN > 90 mL/min (90-120)
--- NOTE | 2019-07-26 08:00 | NUR ---
ALERT AND ORIENTED. LUNGS CLEAR BILATERALLY. HEART SOUNDS S1 AND S2 HEARD IN ALL [place]. BOWEL SOUNDS ACTIVE X 4. IV TO LY PATENT. O2 IN PLACE AT 3L NC. DENIES NEEDS. BED LOW. CALL SIMENTAL AND PERSONAL ITEMS IN REACH. WILL CONTINUE TO MONITOR.
[2019-07-26 08:45] LABS: MCH 35.2 pg (26.0-34.0); MCHC 36.1 g/dL (31.0-37.0); MCV 97.4 fL (80.0-100.0); MEAN PLATELET VOLUME 10.2 fL (7.4-10.4); RDW 20.4 % (11.5-14.5); WBC 15.9 10x3/uL (4.8-10.8)
[2019-07-26 08:46] LABS: HEMATOCRIT 30.2 % (36.0-48.0); HEMOGLOBIN 10.9 g/dL (12-16); PLATELET COUNT 263 10x3/uL (130-400)
[2019-07-26 09:32] VITALS: BP 143/90
--- NOTE | 2019-07-26 12:08 | NUR ---
PATIENT'S BLOOD PRESSURE 160/120. CHECK MANUALLY THREE TIMES. DARÍO ENRIQUE PAGED.
--- NOTE | 2019-07-26 12:13 | NUR ---
ASSEMBLER ADJUSTER IVA STATES GIVE HYDRALAZINE 10MG IV Q6PRN.
--- NOTE | 2019-07-26 12:27 | NUR ---
PRN APRESOLINE AND PRN PAIN MEDICATION GIVEN.
--- NOTE | 2019-07-26 13:39 | NUR ---
BP 138/92.
[2019-07-26 14:02] VITALS: BP 148/93
[2019-07-26 14:35] LABS: ANISOCYTOSIS OCC; EOSINOPHILS 1 % (0-7); LYMPHOCYTES 25 % (15-50); MONOCYTES 21 % (2-11); NEUTROPHILS 53 % (40-80); PLATELET ESTIMATE NORMAL; PLATELET MORPHOLOGY PLT CLUMPS PRESENT; POIKILOCYTOSIS OCC
--- NOTE | 2019-07-26 15:31 | NUR ---
RESTING IN BED. REQUESTED AND GIVEN PRN PAIN MEDICATION. DENIES NEEDS. WILL CONTINUE TO MONITOR.
--- NOTE | 2019-07-26 16:48 | NUR ---
IV INFILTRATED TO LY. REMOVED AND WARM COMPRESSED PLACED ON SITE. RESITED TO HAILEE AFTER ONE ATTEMPT.
--- NOTE | 2019-07-26 17:35 | NUR ---
PATIENT O2 SAT 88% ON 3L. O2 INCREASED TO 5L. O2 SAT 93% ON 5L. ATTEMPTED TO CALL RT TWICE WITH NO ANSWER. WILL ATTEMPT AGAIN.
--- NOTE | 2019-07-26 17:37 | NUR ---
SPOKE WITH RT WHO STATES WILL COME SEE PATIENT.
--- NOTE | 2019-07-26 18:04 | NUR ---
RESTING IN BED. DENIES NEEDS. IV TO HAILEE PATENT WITHOUT REDNESS. BED LOW. CALL SIMENTAL AND PERSONAL ITEMS IN REACH.
[2019-07-26 18:48] VITALS: BP 119/86
[2019-07-26 20:00] VITALS: BP 147/96
[2019-07-27] VITALS (7 sets, daily range): BP systolic 116–162; BP diastolic 49–102
--- NOTE | 2019-07-27 01:18 | NUR ---
PATENT IN BED RESTING WITH NO NEEDS NOTED OR STATED. O2 AT 5L VIA N/C. IV TO UPPER LEFT ARM. WITH NS AT 125 ML/HR. DILADID AND PERCOCET PRN FOR PAIN CONTROL. SCD'S IN PLACE. WATER AND CALL LIGHT IN REACH.CHECKED OFTEN FOR NEEDS AND SAFETY.
--- NOTE | 2019-07-27 04:47 | NUR ---
APRESOLINE 10MG IV FOR B/P 162/100
--- NOTE | 2019-07-27 20:00 | NUR ---
A/O WITH NO SIGNS OF DISTRESS. IV TO THE RT HAND WITH NO REDNESS OR SWELLING NOTED. NC @3L. AMBULATED 100 FT. TOLERATED ACTIVITY WELL. COMPLAINING OF 8/10 PAIN IN FEET. PAIN MEDS ADMIN. DENIES NO FURTHER NEEDS AT THIS TIME. CONTINUE PLAN OF CARE.
[2019-07-28] VITALS: BP 133/95
[2019-07-28 04:00] VITALS: BP 134/93
[2019-07-28 05:21] LABS: BASOPHILS 0.1 % (0-2); CALCIUM 8.8 mg/dL (8.5-10.1); CARBON DIOXIDE 25.1 mmol/L (21.0-32.0); CHLORIDE - SERUM 105 mmol/L (98-107); CREATININE - SERUM 0.7 mg/dL (0.6-1.3); EOSINOPHILS 0.9 % (0-7); GLUCOSE 88 mg/dL (74-106); HEMATOCRIT 26.3 % (36.0-48.0); HEMOGLOBIN 9.7 g/dL (12-16); IMMATURE GRANULOCYTES 0.4 % (0-5); LYMPHOCYTES 13.9 % (15-50); MCH 34.3 pg (26.0-34.0); MCHC 36.9 g/dL (31.0-37.0); MCV 92.9 fL (80.0-100.0); MEAN PLATELET VOLUME 10.3 fL (7.4-10.4); MONOCYTES 11.8 % (2-11); NEUTROPHILS 72.9 % (40-80); PLATELET COUNT 354 10x3/uL (130-400); RBC 2.83 10x6/uL (4.00-5.40); RDW 16.7 % (11.5-14.5); SODIUM 140 mmol/L (136-145); WBC 16.6 10x3/uL (4.8-10.8); eGFR NON AFRICAN AMERICAN > 90 mL/min (90-120)
[2019-07-28 05:22] LABS: CALC OSMOLALITY 274 mosm/kg (275-300); POTASSIUM - SERUM 3.3 mmol/L (3.5-5.1); UREA NITROGEN 4 mg/dL (7-18)
[2019-07-28 08:18] VITALS: BP 121/89
--- NOTE | 2019-07-28 10:12 | NUR ---
RESTING IN BED, CONT TO C/O LEG PAIN, IV INFUSING PER RIGHT HAND, CONT TO MONITOR PAIN AND BP
[2019-07-28 13:11] VITALS: BP 122/76
[2019-07-28 17:09] VITALS: BP 124/90
--- NOTE | 2019-07-28 18:41 | NUR ---
GIVEN UMU FEEDING PER PEG, MELANIE WELL, CONT TO MONITOR
--- NOTE | 2019-07-28 18:44 | NUR ---
1800 IV INFILTRATED, UNABLE TO GAIN ACCESS THIS UMU, VIK AWARE, NEW ORDERS TO DC IV ABT AND GIVE PO
[2019-07-28 20:00] VITALS: BP 121/90
[2019-07-29] VITALS: BP 116/71
[2019-07-29 04:00] VITALS: BP 106/74
--- NOTE | 2019-07-29 06:50 | NUR ---
PT IS AWAKE AND WALKING AROUND ROOM. PT IS ALERT AND ORIENTATED. NO ACUTE S/S OF DITRESS. COMPLAINS OF PAIN AT 10 ON A SCALE OF 0-10. PT WAS GIVEN PERCOCET-10. PT REFUSED IV AND NO LONGER HAS ONE.
[2019-07-29 07:13] LABS: BASOPHILS 0.2 % (0-2); EOSINOPHILS 1.2 % (0-7); HEMATOCRIT 27.5 % (36.0-48.0); HEMOGLOBIN 10.2 g/dL (12-16); IMMATURE GRANULOCYTES 0.4 % (0-5); LYMPHOCYTES 23.2 % (15-50); MCH 34.7 pg (26.0-34.0); MCHC 37.1 g/dL (31.0-37.0); MCV 93.5 fL (80.0-100.0); MEAN PLATELET VOLUME 10.3 fL (7.4-10.4); MONOCYTES 9.4 % (2-11); NEUTROPHILS 65.6 % (40-80); PLATELET COUNT 365 10x3/uL (130-400); RBC 2.94 10x6/uL (4.00-5.40); RDW 17.3 % (11.5-14.5); WBC 13.6 10x3/uL (4.8-10.8)
[2019-07-29 07:54] LABS: CALC OSMOLALITY 281 mosm/kg (275-300); CALCIUM 9.2 mg/dL (8.5-10.1); CARBON DIOXIDE 22.7 mmol/L (21.0-32.0); CHLORIDE - SERUM 105 mmol/L (98-107); CREATININE - SERUM 0.8 mg/dL (0.6-1.3); GLUCOSE 103 mg/dL (74-106); POTASSIUM - SERUM 3.6 mmol/L (3.5-5.1); SODIUM 142 mmol/L (136-145); eGFR NON AFRICAN AMERICAN 83 mL/min (90-120)
[2019-07-29 07:57] LABS: UREA NITROGEN 9 mg/dL (7-18)
[2019-07-29 08:43] VITALS: BP 127/80
--- NOTE | 2019-07-29 11:04 | NUR ---
I have reviewed this patient and I concur with the Shift Assessment completed by the Licensed Practical Nurse today this shift.
[2019-07-29 12:27] VITALS: BP 120/93
[2019-07-29 16:57] VITALS: BP 118/74
--- NOTE | 2019-07-29 17:29 | NUR ---
PT HAS REFUSED THE DILAUDID 2 MG Q8HR. PT STATED "THAT SHIT (DILAUDID) DIDN'T WORK". PT HAS ALSO ASKED MULITPLE TIMES THAT I "FUDGE THE TIME ON THE ORDER" SO SHE CAN GET HER PERCOCET-10 (Q8HR) EARLY. WHEN I REFUSED PT STATED THAT "I HAVEN'T DONE ANYTHING FOR HER ALL DAY. CALL LIGHT IN PLACE. WILL CONTIUE TO MONITOR.
[2019-07-29 20:00] VITALS: BP 113/84
[2019-07-30 04:00] VITALS: BP 135/96
[2019-07-30 06:19] LABS: ANION GAP 12.1 mmol/L (8-16); CALCIUM 9.5 mg/dL (8.5-10.1); CARBON DIOXIDE 26.5 mmol/L (21.0-32.0); CREATININE - SERUM 0.9 mg/dL (0.6-1.3); POTASSIUM - SERUM 3.6 mmol/L (3.5-5.1)
[2019-07-30 06:57] LABS: HEMATOCRIT 26.4 % (36.0-48.0); HEMOGLOBIN 9.6 g/dL (12-16); MCH 33.6 pg (26.0-34.0); MCHC 36.4 g/dL (31.0-37.0); MCV 92.3 fL (80.0-100.0); MEAN PLATELET VOLUME 10.3 fL (7.4-10.4); PLATELET COUNT 360 10x3/uL (130-400); RBC 2.86 10x6/uL (4.00-5.40); RDW 17.3 % (11.5-14.5); WBC 12.8 10x3/uL (4.8-10.8)
[2019-07-30 07:27] LABS: EOSINOPHILS 3 % (0-7); LYMPHOCYTES 19 % (15-50); MONOCYTES 9 % (2-11); NEUTROPHILS 69 % (40-80); PLATELET ESTIMATE NORMAL
[2019-07-30 07:28] LABS: ANISOCYTOSIS 1+; POIKILOCYTOSIS 1+; POLYCHROMASIA 1+; TARGET CELLS 1+
--- NOTE | 2019-07-30 07:43 | NUR ---
PATIENT LAYING ON LEFT SIDE. INFORMED THAT SHE DOES NOT LIKE THE NEW PAIN MED AND WOULD LIKE TO GET IT SWITCHED BACK TO WHAT SHE HAD PREVIOUSLY. I HAVE SPOKEN WITH Robert GARCIA ABOUT THIS. HE SAID TO DC THE DILAUDED AND TO START THE PERCOCETS BACK AT Q4. CL IN REACH. WCTM
[2019-07-30 08:20] VITALS: BP 129/91
--- NOTE | 2019-07-30 11:00 | NUR ---
PATIENT OUT OF ROOM WITH SO.
[2019-07-30 12:55] VITALS: BP 118/86
[2019-07-30 15:24] VITALS: Ht 160 cm; Wt 63.5 kg
--- NOTE | 2019-07-30 15:42 | NUR ---
PATIENT REQUESTED A PAIN PILL AND A COKE. WAS NOT PRESENT WHEN I WENT BACK TO THE ROOM. STILL OUT OF THE ROOM.
[2019-07-30 16:36] VITALS: BP 156/108
--- NOTE | 2019-07-30 18:41 | NUR ---
PATIENT RESTING ON LEFT SIDE. CL IN REACH. NO NEEDS AT THIS TIME.
--- NOTE | 2019-07-30 19:30 | NUR ---
AMBULATING IN HALLWAY AND OUTSIDE TO SMOKE. NO DISTRESS
[2019-07-30 20:00] VITALS: BP 118/55
--- NOTE | 2019-07-30 20:40 | NUR ---
REQUESTED PAIN MED. MEDICATED WITH PERCOCET FOR C/O LEG PAIN RATING 8. RESP EVEN AND NONLABORED. O2 @ 4LNC BUT NOT WEARING IT. REPORTS PROD COUGH WITH CLEAR SPUTUM. NO IV ACCESS. AMBULATORY. VISITOR AT BEDSIDE. CL IN REACH.
--- NOTE | 2019-07-30 21:15 | NUR ---
VISITOR PUSHING PT IN W/C IN HALLWAY ON THE WAY OUTSIDE. NO DISTRESS.
--- NOTE | 2019-07-30 23:25 | NUR ---
REQUESTS PAIN MED. LYING IN BED. INFORMED THAT PAIN MED IS Q 4 HOURS NEEDED AND ISNT DUE UNTIL 0040.
--- NOTE | 2019-07-31 00:35 | NUR ---
MEDICATED WITH PERCOCET FOR C/O PAIN IN LEG RATING 10. LAYING IN BED. IRRITABLE AND TELLING STAFF HER PAIN MED WAS LATE AND IT WAS THE NURSES FAULT. EXPLAINED TO PT THAT SHE DIDNT ASK FOR PAIN MED UNTIL 2039 EVEN THOUGH IT WAS AVAILABLE AT 1929. ATTEMPTED TO EXPLAIN THAT PAIN MED IS PRN, NOT SCHEDULED AROUND THE CLOCK AND THAT SHE HAS TO REQUEST IT. SHE CONT TO COMPLAIN ABOUT STAFF NOT GIVING IT ON TIME.
[2019-07-31 04:00] VITALS: BP 150/90
[2019-07-31 07:06] LABS: HEMATOCRIT 26.6 % (36.0-48.0); HEMOGLOBIN 9.6 g/dL (12-16); MCH 33.4 pg (26.0-34.0); MCHC 36.1 g/dL (31.0-37.0); MCV 92.7 fL (80.0-100.0); MEAN PLATELET VOLUME 10.1 fL (7.4-10.4); PLATELET COUNT 417 10x3/uL (130-400); RBC 2.87 10x6/uL (4.00-5.40); RDW 17.4 % (11.5-14.5)
[2019-07-31 07:10] LABS: CALC OSMOLALITY 282 mosm/kg (275-300); CALCIUM 9.2 mg/dL (8.5-10.1); CARBON DIOXIDE 23.4 mmol/L (21.0-32.0); CHLORIDE - SERUM 108 mmol/L (98-107); CREATININE - SERUM 0.8 mg/dL (0.6-1.3); GLUCOSE 105 mg/dL (74-106); SODIUM 142 mmol/L (136-145); UREA NITROGEN 12 mg/dL (7-18); eGFR NON AFRICAN AMERICAN 83 mL/min (90-120)
[2019-07-31 07:12] LABS: POTASSIUM - SERUM 4.4 mmol/L (3.5-5.1)
[2019-07-31 07:45] LABS: EOSINOPHILS 2 % (0-7); LYMPHOCYTES 22 % (15-50); MONOCYTES 7 % (2-11); NEUTROPHILS 69 % (40-80)
[2019-07-31 07:46] LABS: PLATELET ESTIMATE NORMAL
--- NOTE | 2019-07-31 09:07 | NUR ---
FRIEND IN ROOM. CL IN REACH. FRESH WATER PROVIDED. [facility]
[2019-07-31 09:52] VITALS: BP 148/106
--- NOTE | 2019-07-31 09:59 | MORECARE ---
CASE MANAGEMENT DISCHARGE SUMMARY PATIENT: RODRICK RAMIREZ HERNANDEZ UNIT: [id number] ADM DATE: 07/25/19 AGE: 44 : 77 SEX: F ROOM/BED: D.2206 AUTHOR: DORIAN GAMING PHYSICIAN: REFERRING PHYSICIAN: KHANH PÉREZ MD DATE OF SERVICE: 07/31/19 Discharge Plan Patient Name: RODRICK RAMIREZ Facility: [facility]:[place] : 1975 Planned Disposition: Home or Self Care Anticipated Discharge Date: Discharge Date: Expected LOS: Initial Reviewer: [email or web address] Initial Review Date: 07/25/2019 Generated: 07/31/19 10:59 am Patient Name: RODRICK RAMIREZ Page 73389 at 0959 All edits/amendments must be made on the electronic document DICTATION DATE: 07/31/19957 RENEWABLE ENERGY ENGINEER: JOSEPHINE 07/31/19957 RPT#: [id number] DC DATE: STATUS: ADM IN [facility] [address] [place] [address] END OF REPORT
--- NOTE | 2019-07-31 10:07 | MORECARE ---
CASE MANAGEMENT DISCHARGE SUMMARY PATIENT: RODRICK RAMIREZ HERNANDEZ UNIT: [id number] ADM DATE: 07/25/19 AGE: 44 : 77 SEX: F ROOM/BED: D.2206 AUTHOR: DORIAN GAMING PHYSICIAN: REFERRING PHYSICIAN: KHANH PÉREZ MD DATE OF SERVICE: 07/31/19 Discharge Plan Patient Name: RODRICK RAMIREZ Facility: [facility]:[place] : 1975 Planned Disposition: Home or Self Care Anticipated Discharge Date: Discharge Date: Expected LOS: Initial Reviewer: [email or web address] Initial Review Date: 07/25/2019 Generated: 07/31/19 11:07 am Comments DCP- Discharge Planning Updated by [email or web address]: Jessica Lazaro on 07/31/19 9:[address] Patient Name: RODRICK RAMIREZ Admission Status: ER Accout number: [id number] Admission Date: 07-25-2019 : 1975 Admission Diagnosis:HB-SS DISEASE WITH CRISIS, UNSPECIFIED Attending: CRYS Current LOS: 6 Anticipated DC Date: Planned Disposition: Home or Self Care Primary Insurance: MEDICAID [place] Discharge Planning Comments: CM met with patient to complete initial dc planning assessment. CM educated patient on the CM role and verbal consent given by patient to complete assessment. Patient lives at home with her mother where she is independent with her care. At discharge patient plans to return home and feels this is a safe discharge. Either her mother or her friend will be her uke driver home. CM discussed availability of home health, rehab services, and medical equipment. Patient did ask for me to fax a letter to the court stating that she is in the hospital. I will fax it to [phone]- the number that was provided to me by the patient. Patient denied known discharge needs at this time. CM will continue to follow and will assist as needed with dc plans/needs. Statement Clerks Manager: Jessica Lazaro DCPIA - Discharge Planning Initial Assessment Updated by [email or web address]: Jessica Lazaro on 07/31/19 9:59 am * Is the patient Alert and Oriented? Yes * How many steps to enter\exit or inside your home? 10 * PCP [facility] * Pharmacy [facility] * Preadmission Environment Home with Family * ADLs Independent * Equipment None * List name and contact numbers for known caregivers / representatives who currently or will assist patient after discharge: JOSIE (SISTER) [phone] * Verbal permission to speak to the caregivers and representatives has been obtained from the patient. N/A * Community resources currently utilized None * Additional services required to return to the preadmission environment? No * Can the patient safely return to the preadmission environment? Yes * Has this patient been hospitalized within the prior 30 days at any hospital? No Last DP export: 07/31/19 8:59 Patient Name: RODRICK RAMIREZ Page 76174 at 1007 All edits/amendments must be made on the electronic document DICTATION DATE: 07/31/19 1007 BARK FITTER: JOSEPHINE 07/31/19 [facility] [place] RPT#: [id number] DC DATE: STATUS: ADM IN [facility] [address] [place] [address] END OF REPORT
--- NOTE | 2019-07-31 11:50 | NUR ---
DISCHARGE PAPERWORK GIVEN. PATIENT VERBALIZED UNDERSTANDING. REFUSED WHEELCHAIR DOWN. CALLED DR OFFICE ABOUT WHETHER OR NOT TO KEEP HER DR APPOINTMENT FOR TODAY OR JUST THE ONE ON HER DISCHARGE PAPERWORK.
--- NOTE | 2019-07-31 15:00 | MORECARE ---
CASE MANAGEMENT DISCHARGE SUMMARY PATIENT: RODRICK RAMIREZ HERNANDEZ UNIT: [id number] ADM DATE: 07/25/19 AGE: 44 : 77 SEX: F ROOM/BED: D.2206 AUTHOR: DORIAN GAMING PHYSICIAN: REFERRING PHYSICIAN: KHANH PÉREZ MD DATE OF SERVICE: 07/31/19 Discharge Plan Patient Name: RODRICK RAMRIEZ Facility: [facility]:[place] : 1975 Planned Disposition: Home or Self Care Anticipated Discharge Date: Discharge Date: 07/31/2019 Expected LOS: 0 Initial Reviewer: [email or web address] Initial Review Date: 07/25/2019 Generated: 07/31/19 3:59 pm Comments DCP- Discharge Planning Updated by [email or web address]: Jessica Lazaro on 07/31/19 9:[address] Patient Name: RODRICK RAMIREZ Admission Status: ER Accout number: [id number] Admission Date: 07-25-2019 : 1975 Admission Diagnosis:HB-SS DISEASE WITH CRISIS, UNSPECIFIED Attending: CRYS Current LOS: 6 Anticipated DC Date: Planned Disposition: Home or Self Care Primary Insurance: MEDICAID [place] Discharge Planning Comments: CM met with patient to complete initial dc planning assessment. CM educated patient on the CM role and verbal consent given by patient to complete assessment. Patient lives at home with her mother where she is independent with her care. At discharge patient plans to return home and feels this is a safe discharge. Either her mother or her friend will be her route delivery service driver home. CM discussed availability of home health, rehab services, and medical equipment. Patient did ask for me to fax a letter to the court stating that she is in the hospital. I will fax it to [phone]- the number that was provided to me by the patient. Patient denied known discharge needs at this time. CM will continue to follow and will assist as needed with dc plans/needs. Child And Adolescent Psychologist: Jessica Lazaro DCPIA - Discharge Planning Initial Assessment Updated by [email or web address]: Jessica Lazaro on 07/31/19 9:59 am * Is the patient Alert and Oriented? Yes * How many steps to enter\exit or inside your home? 10 * PCP [facility] * Pharmacy [facility] * Preadmission Environment Home with Family * ADLs Independent * Equipment None * List name and contact numbers for known caregivers / representatives who currently or will assist patient after discharge: JOSIE (SISTER) [phone] * Verbal permission to speak to the caregivers and representatives has been obtained from the patient. N/A * Community resources currently utilized None * Additional services required to return to the preadmission environment? No * Can the patient safely return to the preadmission environment? Yes * Has this patient been hospitalized within the prior 30 days at any hospital? No Last DP export: 07/31/19 9:07 Patient Name: RODRICK RAMIREZ Page 13414 at 1500 All edits/amendments must be made on the electronic document DICTATION DATE: 07/31/191458 TRANSPORTATION PROJECT MANAGER: JOSEPHINE 07/31/191458 RPT#: [id number] DC DATE:07/31/19 STATUS: DIS IN [facility] [address] [place] [address] END OF REPORT
--- NOTE | 2019-07-31 15:07 | MORECARE ---
CASE MANAGEMENT DISCHARGE SUMMARY PATIENT: RODRICK RAMIREZ HERNANDEZ UNIT: [id number] ADM DATE: 07/25/19 AGE: 44 : 77 SEX: F ROOM/BED: D.2206 AUTHOR: DORIAN GAMING PHYSICIAN: REFERRING PHYSICIAN: KHANH PÉREZ MD DATE OF SERVICE: 07/31/19 Discharge Plan Patient Name: RODRICK RAMIREZ Facility: [facility]:[place] : 1975 Planned Disposition: Home or Self Care Anticipated Discharge Date: Discharge Date: 07/31/2019 Expected LOS: 0 Initial Reviewer: [email or web address] Initial Review Date: 07/25/2019 Generated: 07/31/19 4:07 pm Comments DCP- Discharge Planning Updated by [email or web address]: Jessica Lazaro on 07/31/19 9:[address] Patient Name: RODRICK RAMIREZ Admission Status: ER Accout number: [id number] Admission Date: 07-25-2019 : 1975 Admission Diagnosis:HB-SS DISEASE WITH CRISIS, UNSPECIFIED Attending: CRYS Current LOS: 6 Anticipated DC Date: Planned Disposition: Home or Self Care Primary Insurance: MEDICAID [place] Discharge Planning Comments: CM met with patient to complete initial dc planning assessment. CM educated patient on the CM role and verbal consent given by patient to complete assessment. Patient lives at home with her mother where she is independent with her care. At discharge patient plans to return home and feels this is a safe discharge. Either her mother or her friend will be her class b truck driver home. CM discussed availability of home health, rehab services, and medical equipment. Patient did ask for me to fax a letter to the court stating that she is in the hospital. I will fax it to [phone]- the number that was provided to me by the patient. Patient denied known discharge needs at this time. CM will continue to follow and will assist as needed with dc plans/needs. Auto Body Repairer Fiberglass: Jessica Lazaro DCPIA - Discharge Planning Initial Assessment Updated by [email or web address]: Jessica Lazaro on 07/31/19 9:59 am * Is the patient Alert and Oriented? Yes * How many steps to enter\exit or inside your home? 10 * PCP [facility] * Pharmacy [facility] * Preadmission Environment Home with Family * ADLs Independent * Equipment None * List name and contact numbers for known caregivers / representatives who currently or will assist patient after discharge: JOSIE (SISTER) [phone] * Verbal permission to speak to the caregivers and representatives has been obtained from the patient. N/A * Community resources currently utilized None * Additional services required to return to the preadmission environment? No * Can the patient safely return to the preadmission environment? Yes * Has this patient been hospitalized within the prior 30 days at any hospital? No Last DP export: 07/31/19 9:07 Patient Name: RODRICK RAMIREZ Page 30338 at 1507 All edits/amendments must be made on the electronic document DICTATION DATE: 07/31/191506 REFORMATORY ATTENDANT: JOSEPHINE 07/31/19 1507 RPT#: [id number] DC DATE:07/31/19 STATUS: DIS IN [facility] [address] [place] [address] END OF REPORT
== END 2019-07-31 11:51 | disposition home or self-care (01) | DRG 811 ==
LOC: D.ER 13:31 → D.MS 17:45
PROVIDERS: Family Medicine; ADMIT Emergency Medicine; ATTEND Emergency Medicine
DX: D57.00 Hb-SS disease with crisis, unspecified (principal); J18.9 Pneumonia, unspecified organism; D72.829 Elevated white blood cell count, unspecified; D47.3 Essential (hemorrhagic) thrombocythemia

== ENCOUNTER 2019-10-24 14:10 | Emergency (ER) | payer MEDICAID ==
[~2019-10-24] VITALS: Ht 160 cm; Wt 53.6 kg
[~2019-10-24 14:10] MED LIST changes: +SELENIUM SULFI118 ML TP
[2019-10-24 14:17] VITALS: Ht 160 cm; Wt 53.6 kg
[2019-10-24 15:21] LABS: BASOPHILS 0.5 % (0-2); EOSINOPHILS 5.3 % (0-7); HEMATOCRIT 31.7 % (36.0-48.0); HEMOGLOBIN 10.4 g/dL (12-16); IMMATURE GRANULOCYTES 0.3 % (0-5); LYMPHOCYTES 27.9 % (15-50); MCH 30.1 pg (26.0-34.0); MCHC 32.8 g/dL (31.0-37.0); MCV 91.6 fL (80.0-100.0); MEAN PLATELET VOLUME 8.8 fL (7.4-10.4); MONOCYTES 8.4 % (2-11); NEUTROPHILS 57.6 % (40-80); RBC 3.46 10x6/uL (4.00-5.40); RDW 17.4 % (11.5-14.5); WBC 9.5 10x3/uL (4.8-10.8)
[2019-10-24 15:22] LABS: PLATELET COUNT 606 10x3/uL (130-400)
[2019-10-24 15:27] LABS: CALCIUM 9.6 mg/dL (8.5-10.1); CARBON DIOXIDE 24.2 mmol/L (21.0-32.0); CREATININE - SERUM 0.9 mg/dL (0.6-1.3); POTASSIUM - SERUM 4.2 mmol/L (3.5-5.1)
[2019-10-24 15:34] LABS: ALBUMIN 3.5 g/dL (3.4-5.0); BILIRUBIN - TOTAL 0.46 mg/dL (0.2-1.3); PROTEIN - SERUM 6.9 g/dL (6.4-8.2)
[2019-10-24 17:23] VITALS: BP 104/60
== END 2019-10-24 17:10 | disposition left against medical advice (07) ==
LOC: D.ER 14:10
PROVIDERS: Emergency Medicine
DX: D57.1 Sickle-cell disease without crisis (principal); M79.605 Pain in left leg; Z53.29 Procedure and treatment not carried out because of patient's decision for other reasons; Z86.73 Personal history of transient ischemic attack (TIA), and cerebral infarction without residual deficits

== ENCOUNTER 2020-01-19 23:48 | Emergency (ER) | payer MEDICAID ==
[~2020-01-19] VITALS: Ht 160 cm; Wt 49.9 kg
[2020-01-19 23:58] VITALS: Ht 160 cm; Wt 49.9 kg
[2020-01-20 00:18] LABS: BASOPHILS 0.2 % (0-2); EOSINOPHILS 1.4 % (0-7); HEMATOCRIT 32.2 % (36.0-48.0); HEMOGLOBIN 11.6 g/dL (12-16); IMMATURE GRANULOCYTES 0.2 % (0-5); LYMPHOCYTES 24.9 % (15-50); MCV 91.5 fL (80.0-100.0); MEAN PLATELET VOLUME 8.9 fL (7.4-10.4); MONOCYTES 5.6 % (2-11); NEUTROPHILS 67.7 % (40-80); PLATELET COUNT 514 10x3/uL (130-400); RBC 3.52 10x6/uL (4.00-5.40); RDW 17.7 % (11.5-14.5); WBC 14.1 10x3/uL (4.8-10.8)
[2020-01-20 00:29] LABS: ANION GAP 11.5 mmol/L (8-16); CALCIUM 9.3 mg/dL (8.5-10.1); CARBON DIOXIDE 25.4 mmol/L (21.0-32.0); CREATININE - SERUM 1.1 mg/dL (0.6-1.3); POTASSIUM - SERUM 3.9 mmol/L (3.5-5.1)
[2020-01-20 00:34] LABS: ALBUMIN 3.9 g/dL (3.4-5.0); BILIRUBIN - TOTAL 0.54 mg/dL (0.2-1.3); PROTEIN - SERUM 7.5 g/dL (6.4-8.2)
[2020-01-20 01:01] VITALS: BP 111/74
== END 2020-01-20 01:01 | disposition home or self-care (01) ==
LOC: D.ER 23:48
PROVIDERS: Family Medicine
DX: D57.1 Sickle-cell disease without crisis (principal); M79.605 Pain in left leg; Z86.73 Personal history of transient ischemic attack (TIA), and cerebral infarction without residual deficits

== ENCOUNTER 2020-01-23 22:16 | Emergency (ER) | payer MEDICAID ==
[~2020-01-23] VITALS: Ht 160 cm; Wt 49.9 kg
[2020-01-23 22:21] VITALS: Ht 160 cm; Wt 49.9 kg
[2020-01-24 00:10] VITALS: BP 122/88
== END 2020-01-24 00:10 | disposition home or self-care (01) ==
LOC: D.ER 22:16
DX: D57.00 Hb-SS disease with crisis, unspecified (principal); Z86.73 Personal history of transient ischemic attack (TIA), and cerebral infarction without residual deficits; M79.605 Pain in left leg

== ENCOUNTER 2020-01-26 20:47 | Emergency (ER) | payer MEDICAID ==
[~2020-01-26] VITALS: Ht 160 cm; Wt 52.2 kg
[2020-01-26 20:55] VITALS: Ht 160 cm; Wt 52.2 kg
[2020-01-26 21:15] LABS: BASOPHILS 0.3 % (0-2); EOSINOPHILS 3.1 % (0-7); HEMATOCRIT 30.4 % (36.0-48.0); HEMOGLOBIN 10.8 g/dL (12-16); IMMATURE GRANULOCYTES 0.2 % (0-5); MCH 33.1 pg (26.0-34.0); MCHC 35.5 g/dL (31.0-37.0); MCV 93.3 fL (80.0-100.0); MEAN PLATELET VOLUME 8.7 fL (7.4-10.4); MONOCYTES 9.6 % (2-11); NEUTROPHILS 53.8 % (40-80); PLATELET COUNT 362 10x3/uL (130-400); RBC 3.26 10x6/uL (4.00-5.40); RDW 17.9 % (11.5-14.5); WBC 10.8 10x3/uL (4.8-10.8)
[2020-01-26 21:20] LABS: ANION GAP 11.6 mmol/L (8-16); CALCIUM 9.3 mg/dL (8.5-10.1); CARBON DIOXIDE 25.1 mmol/L (21.0-32.0); CREATININE - SERUM 1.1 mg/dL (0.6-1.3); POTASSIUM - SERUM 3.7 mmol/L (3.5-5.1)
[2020-01-26 21:27] LABS: ALBUMIN 3.6 g/dL (3.4-5.0); BILIRUBIN - TOTAL 0.69 mg/dL (0.2-1.3); PROTEIN - SERUM 7.1 g/dL (6.4-8.2)
[2020-01-26 22:47] VITALS: BP 144/84
== END 2020-01-26 22:47 | disposition home or self-care (01) ==
LOC: D.ER 20:47
PROVIDERS: Surgery
DX: D57.00 Hb-SS disease with crisis, unspecified (principal); M79.605 Pain in left leg

== ENCOUNTER 2020-01-30 18:29 | Emergency (ER) | payer MEDICAID ==
[~2020-01-30] VITALS: Ht 160 cm; Wt 50.0 kg
[2020-01-30 18:33] VITALS: BP 128/8; Ht 160 cm; Wt 50.0 kg
[2020-01-30 19:19] LABS: BASOPHILS 0.2 % (0-2); EOSINOPHILS 2.2 % (0-7); HEMATOCRIT 31.6 % (36.0-48.0); HEMOGLOBIN 11.2 g/dL (12-16); IMMATURE GRANULOCYTES 0.1 % (0-5); LYMPHOCYTES 28.9 % (15-50); MCH 33.5 pg (26.0-34.0); MCHC 35.4 g/dL (31.0-37.0); MCV 94.6 fL (80.0-100.0); MEAN PLATELET VOLUME 9.1 fL (7.4-10.4); MONOCYTES 9.5 % (2-11); NEUTROPHILS 59.1 % (40-80); PLATELET COUNT 305 10x3/uL (130-400); RBC 3.34 10x6/uL (4.00-5.40); RDW 18.1 % (11.5-14.5); WBC 9.6 10x3/uL (4.8-10.8)
[2020-01-30 19:35] LABS: ANION GAP 10.5 mmol/L (8-16); CALCIUM 9.2 mg/dL (8.5-10.1); CARBON DIOXIDE 26.7 mmol/L (21.0-32.0); CREATININE - SERUM 1.2 mg/dL (0.6-1.3); POTASSIUM - SERUM 4.2 mmol/L (3.5-5.1)
[2020-01-30 19:41] LABS: ALBUMIN 3.8 g/dL (3.4-5.0); BILIRUBIN - TOTAL 0.83 mg/dL (0.2-1.3); PROTEIN - SERUM 7.3 g/dL (6.4-8.2)
[2020-01-30 20:06] LABS: BILIRUBIN NEGATIVE (NEGATIVE); GLUCOSE NEGATIVE (NEGATIVE); KETONE NEGATIVE (NEGATIVE); NITRITE NEGATIVE (NEGATIVE); UROBILINOGEN NORMAL (NORMAL)
== END 2020-01-30 20:25 | disposition home or self-care (01) ==
LOC: D.ER 18:29
PROVIDERS: Emergency Medicine
DX: D57.1 Sickle-cell disease without crisis (principal); M25.50 Pain in unspecified joint; M79.662 Pain in left lower leg

== ENCOUNTER 2020-02-03 19:00 | Emergency (ER) | payer MEDICAID ==
[~2020-02-03] VITALS: Ht 160 cm; Wt 54.5 kg
[2020-02-03 19:07] VITALS: BP 116/80; Ht 160 cm; Wt 54.5 kg
[2020-02-03] MEDS ORDERED: CHOLESTEROL PILL PO (19:10)
[2020-02-03 19:45] LABS: BASOPHILS 0.2 % (0-2); EOSINOPHILS 2.2 % (0-7); HEMATOCRIT 32.6 % (36.0-48.0); HEMOGLOBIN 11.7 g/dL (12-16); IMMATURE GRANULOCYTES 0.3 % (0-5); LYMPHOCYTES 26.9 % (15-50); MCH 34.3 pg (26.0-34.0); MCHC 35.9 g/dL (31.0-37.0); MCV 95.6 fL (80.0-100.0); MEAN PLATELET VOLUME 9.1 fL (7.4-10.4); MONOCYTES 9.1 % (2-11); NEUTROPHILS 61.3 % (40-80); PLATELET COUNT 317 10x3/uL (130-400); RBC 3.41 10x6/uL (4.00-5.40); RDW 17.9 % (11.5-14.5)
[2020-02-03 19:51] LABS: ANION GAP 9.4 mmol/L (8-16); CALCIUM 9.3 mg/dL (8.5-10.1); CARBON DIOXIDE 27.2 mmol/L (21.0-32.0); CREATININE - SERUM 1.1 mg/dL (0.6-1.3); POTASSIUM - SERUM 3.6 mmol/L (3.5-5.1)
[2020-02-03 19:57] LABS: ALBUMIN 3.7 g/dL (3.4-5.0); BILIRUBIN - TOTAL 0.85 mg/dL (0.2-1.3); PROTEIN - SERUM 7.1 g/dL (6.4-8.2)
== END 2020-02-03 21:00 | disposition left against medical advice (07) ==
LOC: D.ER 19:00
PROVIDERS: Family Medicine
DX: M79.605 Pain in left leg (principal); Z53.29 Procedure and treatment not carried out because of patient's decision for other reasons; Z86.73 Personal history of transient ischemic attack (TIA), and cerebral infarction without residual deficits; D57.1 Sickle-cell disease without crisis; M54.9 Dorsalgia, unspecified

== ENCOUNTER 2020-02-14 21:00 | Emergency (ER) | payer MEDICAID ==
[~2020-02-14] VITALS: Ht 160 cm; Wt 54.4 kg
[~2020-02-14 21:00] MED LIST changes: +CHOLESTEROL PILL PO
[2020-02-14 21:33] VITALS: BP 113/74; Ht 160 cm; Wt 54.4 kg
[2020-02-14 21:57] LABS: NITRITE NEGATIVE (NEGATIVE); SPECIFIC GRAVITY 1.015 (1.005-1.020)
[2020-02-14 21:57] LABS: BASOPHILS 0.3 % (0-2); EOSINOPHILS 2.4 % (0-7); IMMATURE GRANULOCYTES 0.3 % (0-5); LYMPHOCYTES 29.2 % (15-50); MCH 34.4 pg (26.0-34.0); MCHC 36.4 g/dL (31.0-37.0); MCV 94.6 fL (80.0-100.0); MEAN PLATELET VOLUME 9.2 fL (7.4-10.4); MONOCYTES 6.6 % (2-11); NEUTROPHILS 61.2 % (40-80); RBC 3.49 10x6/uL (4.00-5.40); WBC 11.5 10x3/uL (4.8-10.8)
[2020-02-14 21:58] LABS: BILIRUBIN NEGATIVE (NEGATIVE); GLUCOSE NEGATIVE (NEGATIVE); KETONE NEGATIVE (NEGATIVE); UROBILINOGEN NORMAL (NORMAL)
[2020-02-14 21:59] LABS: PLATELET COUNT 574 10x3/uL (130-400)
[2020-02-14 22:06] LABS: UDS - AMPHET NEGATIVE QUAL (NEGATIVE); UDS - BARB NEGATIVE QUAL (NEGATIVE); UDS - BENZO NEGATIVE QUAL (NEGATIVE); UDS - COCAINE POSITIVE QUAL (NEGATIVE); UDS - OPIATE NEGATIVE QUAL (NEGATIVE); UDS - PCP NEGATIVE QUAL (NEGATIVE); UDS - THC NEGATIVE QUAL (NEGATIVE)
== END 2020-02-14 22:15 | disposition home or self-care (01) ==
LOC: D.ER 21:00
PROVIDERS: Family Medicine
DX: D57.1 Sickle-cell disease without crisis (principal); Z86.73 Personal history of transient ischemic attack (TIA), and cerebral infarction without residual deficits; M79.10 Myalgia, unspecified site

== ENCOUNTER 2020-02-15 19:33 | Emergency (ER) | payer MEDICAID ==
[~2020-02-15] VITALS: Ht 160 cm; Wt 54.5 kg
[2020-02-15 19:38] VITALS: Ht 160 cm; Wt 54.5 kg
[2020-02-15 20:38] LABS: BASOPHILS 0.3 % (0-2); EOSINOPHILS 2.3 % (0-7); HEMATOCRIT 32.2 % (36.0-48.0); HEMOGLOBIN 11.9 g/dL (12-16); IMMATURE GRANULOCYTES 0.4 % (0-5); LYMPHOCYTES 23.9 % (15-50); MCH 34.6 pg (26.0-34.0); MCV 93.6 fL (80.0-100.0); MEAN PLATELET VOLUME 8.7 fL (7.4-10.4); MONOCYTES 8.1 % (2-11); PLATELET COUNT 500 10x3/uL (130-400); RBC 3.44 10x6/uL (4.00-5.40); RDW 16.5 % (11.5-14.5); WBC 13.8 10x3/uL (4.8-10.8)
[2020-02-15 22:02] VITALS: BP 118/71
== END 2020-02-15 22:02 | disposition home or self-care (01) ==
LOC: D.ER 19:33
PROVIDERS: Family Medicine
DX: D57.1 Sickle-cell disease without crisis (principal); M79.605 Pain in left leg; Z86.73 Personal history of transient ischemic attack (TIA), and cerebral infarction without residual deficits

== ENCOUNTER 2020-02-18 21:23 | Emergency (ER) | payer MEDICAID ==
[~2020-02-18] VITALS: Ht 160 cm; Wt 50.0 kg
[2020-02-18 21:29] VITALS: Ht 160 cm; Wt 50.0 kg
[2020-02-18 21:54] LABS: BASOPHILS 0.2 % (0-2); EOSINOPHILS 1.5 % (0-7); HEMATOCRIT 32.4 % (36.0-48.0); HEMOGLOBIN 11.7 g/dL (12-16); IMMATURE GRANULOCYTES 0.2 % (0-5); LYMPHOCYTES 28.9 % (15-50); MCH 33.7 pg (26.0-34.0); MCHC 36.1 g/dL (31.0-37.0); MCV 93.4 fL (80.0-100.0); MEAN PLATELET VOLUME 8.7 fL (7.4-10.4); MONOCYTES 6.6 % (2-11); NEUTROPHILS 62.6 % (40-80); PLATELET COUNT 445 10x3/uL (130-400); RBC 3.47 10x6/uL (4.00-5.40); RDW 16.2 % (11.5-14.5); WBC 11.5 10x3/uL (4.8-10.8)
[2020-02-18 22:32] LABS: ANION GAP 11.9 mmol/L (8-16); CALCIUM 8.8 mg/dL (8.5-10.1); CARBON DIOXIDE 24.9 mmol/L (21.0-32.0); POTASSIUM - SERUM 3.8 mmol/L (3.5-5.1)
[2020-02-18 22:39] LABS: ALBUMIN 3.3 g/dL (3.4-5.0); BILIRUBIN - TOTAL 0.51 mg/dL (0.2-1.3); PROTEIN - SERUM 6.8 g/dL (6.4-8.2)
[2020-02-18 22:39] LABS: BILIRUBIN NEGATIVE (NEGATIVE); GLUCOSE NEGATIVE (NEGATIVE); KETONE NEGATIVE (NEGATIVE); NITRITE NEGATIVE (NEGATIVE); UROBILINOGEN NORMAL (NORMAL)
[2020-02-18 23:08] VITALS: BP 131/87
== END 2020-02-18 23:29 | disposition home or self-care (01) ==
LOC: D.ER 21:23
PROVIDERS: Family Medicine
DX: D57.00 Hb-SS disease with crisis, unspecified (principal); M79.605 Pain in left leg; Z86.73 Personal history of transient ischemic attack (TIA), and cerebral infarction without residual deficits

== ENCOUNTER 2020-02-22 19:17 | Emergency (ER) | payer MEDICAID ==
[~2020-02-22] VITALS: Ht 160 cm; Wt 50.0 kg
[2020-02-22 19:24] VITALS: Ht 160 cm; Wt 50.0 kg
[2020-02-22 20:35] LABS: BASOPHILS 0.2 % (0-2); EOSINOPHILS 1.3 % (0-7); HEMATOCRIT 34.1 % (36.0-48.0); HEMOGLOBIN 12.5 g/dL (12-16); IMMATURE GRANULOCYTES 0.3 % (0-5); LYMPHOCYTES 29.9 % (15-50); MCH 34.3 pg (26.0-34.0); MCHC 36.7 g/dL (31.0-37.0); MCV 93.7 fL (80.0-100.0); MEAN PLATELET VOLUME 9.3 fL (7.4-10.4); MONOCYTES 10.6 % (2-11); NEUTROPHILS 57.7 % (40-80); RBC 3.64 10x6/uL (4.00-5.40); RDW 16.1 % (11.5-14.5); WBC 10.5 10x3/uL (4.8-10.8)
[2020-02-22 20:39] LABS: ALBUMIN 3.9 g/dL (3.4-5.0); ANION GAP 11.9 mmol/L (8-16); BILIRUBIN - TOTAL 0.71 mg/dL (0.2-1.3); CALCIUM 9.4 mg/dL (8.5-10.1); CARBON DIOXIDE 25.1 mmol/L (21.0-32.0); CREATININE - SERUM 1.1 mg/dL (0.6-1.3)
[2020-02-22 20:43] LABS: PLATELET COUNT 309 10x3/uL (130-400)
[2020-02-22] MEDS ORDERED: BENADRYL25 MG PO (21:04)
[2020-02-22] MEDS ORDERED: HYDROCODON-ACE1 EA10 PO (21:04)
[2020-02-22 21:12] VITALS: BP 115/74
== END 2020-02-22 21:12 | disposition home or self-care (01) ==
LOC: D.ER 19:17
PROVIDERS: Emergency Medicine
DX: M79.605 Pain in left leg (principal); D57.1 Sickle-cell disease without crisis; Z86.73 Personal history of transient ischemic attack (TIA), and cerebral infarction without residual deficits

== ENCOUNTER 2020-02-28 19:57 | Emergency (ER) | payer MEDICAID ==
[2020-02-22 19:24] VITALS: BMI 19.5
[~2020-02-28 19:57] MED LIST changes: +BENADRYL25 MG PO; +HYDROCODON-ACE1 EA10 PO
== END 2020-02-28 22:42 | disposition left against medical advice (07) ==
LOC: D.ER 19:57
DX: M79.605 Pain in left leg (principal)

== ENCOUNTER 2020-02-29 13:23 | Emergency (ER) | payer MEDICAID ==
[~2020-02-29] VITALS: Ht 160 cm; Wt 50.0 kg
[2020-02-29 13:30] VITALS: Ht 160 cm; Wt 50.0 kg
[2020-02-29 14:47] VITALS: BP 120/74
== END 2020-02-29 14:09 | disposition home or self-care (01) ==
LOC: D.ER 13:23
DX: M79.605 Pain in left leg (principal); G89.29 Other chronic pain; D57.1 Sickle-cell disease without crisis; Z86.73 Personal history of transient ischemic attack (TIA), and cerebral infarction without residual deficits

== ENCOUNTER 2020-03-31 14:44 | Emergency (ER) | payer MEDICAID ==
[~2020-03-31] VITALS: Ht 160 cm; Wt 50.0 kg
[2020-03-31 14:50] VITALS: BP 104/72; Ht 160 cm; Wt 50.0 kg
== END 2020-03-31 22:04 | disposition left against medical advice (07) ==
LOC: D.ER 14:44
DX: M79.605 Pain in left leg (principal)

== ENCOUNTER 2020-04-10 17:49 | Emergency (ER) | payer MEDICAID ==
[~2020-04-10] VITALS: Ht 160 cm; Wt 50.0 kg
[2020-04-10 17:59] VITALS: BP 127/93; Ht 160 cm; Wt 50.0 kg
== END 2020-04-10 19:13 | disposition left against medical advice (07) ==
LOC: D.ER 17:49
DX: R52 Pain, unspecified (principal)

== ENCOUNTER 2020-10-21 10:58 | Emergency (ER) | payer MEDICAID ==
[~2020-10-21] VITALS: Ht 160 cm; Wt 50.0 kg
[2020-10-21 11:18] VITALS: BP 144/99; Ht 160 cm; Wt 50.0 kg
== END 2020-10-21 12:50 | disposition left against medical advice (07) ==
LOC: D.ER 10:58
DX: Z53.21 Procedure and treatment not carried out due to patient leaving prior to being seen by health care provider (principal)

== ENCOUNTER 2020-11-02 12:31 | Inpatient (IN) | payer MEDICAID ==
[~2020-11-02] VITALS: Ht 160 cm; Wt 49.9 kg
--- NOTE | 2020-11-02 13:22 | NUR ---
BG 123 AT THIS TIME
[2020-11-02 13:30] LABS: BASOPHILS 0.3 % (0-2); EOSINOPHILS 0.7 % (0-7); HEMATOCRIT 32.1 % (36.0-48.0); HEMOGLOBIN 11.8 g/dL (12-16); IMMATURE GRANULOCYTES 0.4 % (0-5); LYMPHOCYTE ABS# 2.63 10x3/uL (1.18-3.74); MCH 31.4 pg (26.0-34.0); MCHC 36.8 g/dL (31.0-37.0); MCV 85.4 fL (80.0-100.0); MEAN PLATELET VOLUME 8.7 fL (7.4-10.4); MONOCYTES 7.7 % (2-11); NEUTROPHIL ABS# 9.94 10x3/uL (1.56-6.13); NEUTROPHILS 71.9 % (40-80); RBC 3.76 10x6/uL (4.00-5.40); RDW 17.1 % (11.5-14.5); WBC 13.8 10x3/uL (4.8-10.8)
[2020-11-02 13:31] LABS: PLATELET COUNT 444 10x3/uL (130-400)
[2020-11-02 13:39] LABS: APTT 28.8 SECONDS (22.8-39.4); INR 1.18 (0.85-1.17); PROTIME 13.9 SECONDS (11.6-15.0)
[2020-11-02 13:40] LABS: CALC OSMOLALITY 280 mosm/kg (275-300); CALCIUM 8.9 mg/dL (8.5-10.1); CARBON DIOXIDE 25.8 mmol/L (21.0-32.0); CHLORIDE - SERUM 106 mmol/L (98-107); CREATININE - SERUM 0.9 mg/dL (0.6-1.3); GLUCOSE 110 mg/dL (74-106); POTASSIUM - SERUM 3.8 mmol/L (3.5-5.1); SODIUM 141 mmol/L (136-145); UREA NITROGEN 10 mg/dL (7-18); eGFR NON AFRICAN AMERICAN 72 mL/min (90-120)
[2020-11-02 13:56] LABS: ALKALINE PHOSPHATASE 106 U/L (30-120); ALT (SGPT) 19 U/L (10-68); CREATINE KINASE 39 UL (21-215); PROTEIN - SERUM 7.2 g/dL (6.4-8.2); THYROID STIMULATING HORMONE 0.35 uIU/mL (0.36-3.74)
[2020-11-02 13:57] LABS: TROPONIN-I < 0.017 ng/mL (0.000-0.060)
[2020-11-02 14:57] VITALS: BP 136/87
--- NOTE | 2020-11-02 14:59 | NUR ---
PT REPORT GIVEN TO REMEDIOS OLIVO, CALLED HER BACK TO LET HER CT WAS HERE FOR PT AND THAT AFTER HER CTA SCAN THEY WILL BRING HER TO THE ROOM WITH EKG, MEDS NOT STARTED DUE TO THEM TAKINF PT FOR SCAN. REGISTRATION WILL TAKE CHART TO ROOM JARRELL. VERBAL ACKNOWLEDGEMENT OBTAINED
[2020-11-02] MEDS ORDERED: ELIQUIS5 MG (15:22)
[2020-11-02 15:29] VITALS: BMI 19.5
--- NOTE | 2020-11-02 15:35 | NUR ---
PT ARRIVES TO UNIT PER STRETCHER FROM ER, FAMILY MEMBER AT BEDSIDE, SL TO RAC AND R SHOULDER, CONT ASSESSMENT AND NEW ORDERS
[2020-11-02 17:02] VITALS: BP 134/78
[2020-11-02 20:00] VITALS: BP 115/78
--- NOTE | 2020-11-02 20:00 | NUR ---
LYING QUEITLY WATCHING TV.NO COMPLAINTS VOICED. RESP EVEN AND UNLABORED.IV TO LAC INTACT WITHOUT REDNESS OR EDEMA NOTED. CL IN REACH. FALL PRECAUTIONS IN PLACE. BED ALARM ON.
[2020-11-03] VITALS: BP 113/75
[2020-11-03 00:20] LABS: CREATINE KINASE 43 UL (21-215)
[2020-11-03 00:33] LABS: TROPONIN-I < 0.017 ng/mL (0.000-0.060)
[2020-11-03 03:32] LABS: UDS - AMPHET NEGATIVE QUAL (NEGATIVE); UDS - BARB NEGATIVE QUAL (NEGATIVE); UDS - BENZO NEGATIVE QUAL (NEGATIVE); UDS - COCAINE POSITIVE QUAL (NEGATIVE); UDS - OPIATE POSITIVE QUAL (NEGATIVE); UDS - PCP NEGATIVE QUAL (NEGATIVE); UDS - THC POSITIVE QUAL (NEGATIVE)
--- NOTE | 2020-11-03 03:33 | NUR ---
I have reviewed this patient and I concur with the Shift Assessment completed by the Licensed Practical Nurse today this shift.
[2020-11-03 04:00] VITALS: BP 104/59
[2020-11-03 06:54] LABS: ALBUMIN 3.5 g/dL (3.4-5.0); ALKALINE PHOSPHATASE 92 U/L (30-120); ALT (SGPT) 17 U/L (10-68); BILIRUBIN - TOTAL 1.03 mg/dL (0.2-1.3); CALC OSMOLALITY 277 mosm/kg (275-300); CALCIUM 8.7 mg/dL (8.5-10.1); CARBON DIOXIDE 24.9 mmol/L (21.0-32.0); CHLORIDE - SERUM 108 mmol/L (98-107); CREATINE KINASE 37 UL (21-215); GLUCOSE 100 mg/dL (74-106); POTASSIUM - SERUM 3.6 mmol/L (3.5-5.1); PROTEIN - SERUM 6.4 g/dL (6.4-8.2); SODIUM 139 mmol/L (136-145); TROPONIN-I < 0.017 ng/mL (0.000-0.060); eGFR NON AFRICAN AMERICAN 64 mL/min (90-120)
[2020-11-03 06:56] LABS: UREA NITROGEN 13 mg/dL (7-18)
[2020-11-03 07:44] LABS: BASOPHILS 0.3 % (0-2); EOSINOPHILS 2.2 % (0-7); HEMATOCRIT 27.4 % (36.0-48.0); HEMOGLOBIN 10.2 g/dL (12-16); IMMATURE GRANULOCYTES 0.4 % (0-5); LYMPHOCYTE ABS# 3.59 10x3/uL (1.18-3.74); LYMPHOCYTES 27.8 % (15-50); MCH 31.4 pg (26.0-34.0); MCHC 37.2 g/dL (31.0-37.0); MCV 84.3 fL (80.0-100.0); MEAN PLATELET VOLUME 9.2 fL (7.4-10.4); MONOCYTES 8.6 % (2-11); NEUTROPHIL ABS# 7.85 10x3/uL (1.56-6.13); NEUTROPHILS 60.7 % (40-80); PLATELET COUNT 414 10x3/uL (130-400); RBC 3.25 10x6/uL (4.00-5.40); RDW 16.9 % (11.5-14.5); WBC 12.9 10x3/uL (4.8-10.8)
[2020-11-03 07:49] VITALS: BP 109/77
--- NOTE | 2020-11-03 08:12 | NUR ---
PT LAYING IN BED RESTING, MEDS GIVEN WHOLE, PT HAS DIFFICULT TIME WITH TAKING MEDICATIONS THIS WAY AND GOT SLIGHTLY CHOKED BUT WAS ABLE TO RECOVER ON HER OWN, PT REQUESTED PAIN MEDICATION
[2020-11-03 08:40] LABS: CHOL - HDL RATIO 2.2 ratio (2.3-4.1); LDL-HDL RATIO 0.9 ratio (1.5-3.5)
[2020-11-03 12:04] VITALS: BP 119/74
[2020-11-03 12:41] VITALS: Ht 160 cm; Wt 49.9 kg
--- NOTE | 2020-11-03 14:36 | NUR ---
PT MORE AWAKE AND ALERT AT THIS TIME, VISIT FROM HER , PT STATES PAIN 8/10, PAIN MEDICATION GIVEN, PT IS ABLE TO TOLERATE APPLESAUCE WITH CRUSHED MEDS WITHOUT CHOKING, PT REQUESTING SOMETHING TO EAT
--- NOTE | 2020-11-03 15:01 | NUR ---
LAB NOTIFIED THIS RN THAT BOTH PHLEBOTOMISTS COULD NOT GET THE BLOOD DRAW AND PT DID NOT WANT TO BE STUCK ANYMORE
[2020-11-03 16:27] LABS: CREATINE KINASE 38 UL (21-215); TROPONIN-I < 0.017 ng/mL (0.000-0.060)
[2020-11-03 16:51] VITALS: BP 117/66
--- NOTE | 2020-11-03 17:21 | NUR ---
PT REQUESTED PAIN MEDICATION FOR HER KNEE PER DR QIU, NOT DUE FOR NORCO AGAIN UNTIL AFTER 1999, OFFERED TYLENOL BUT PT REFUSED
[2020-11-03 21:33] VITALS: BP 121/83
[2020-11-04 00:39] VITALS: BP 103/76
[2020-11-04 05:15] VITALS: BP 104/62
[2020-11-04 06:17] LABS: ALBUMIN 3.1 g/dL (3.4-5.0); ANION GAP 13.2 mmol/L (8-16); BILIRUBIN - TOTAL 0.84 mg/dL (0.2-1.3); CALCIUM 8.1 mg/dL (8.5-10.1); CARBON DIOXIDE 21.9 mmol/L (21.0-32.0); CREATININE - SERUM 0.9 mg/dL (0.6-1.3); MAGNESIUM - SERUM 1.9 mg/dL (1.8-2.4); POTASSIUM - SERUM 4.1 mmol/L (3.5-5.1); PROTEIN - SERUM 5.5 g/dL (6.4-8.2)
[2020-11-04 07:03] LABS: BASOPHILS 0.3 % (0-2); EOSINOPHILS 1.9 % (0-7); HEMOGLOBIN 9.6 g/dL (12-16); IMMATURE GRANULOCYTES 0.3 % (0-5); LYMPHOCYTE ABS# 4.37 10x3/uL (1.18-3.74); LYMPHOCYTES 30.7 % (15-50); MCH 31.1 pg (26.0-34.0); MCHC 36.9 g/dL (31.0-37.0); MCV 84.1 fL (80.0-100.0); MEAN PLATELET VOLUME 9.3 fL (7.4-10.4); NEUTROPHIL ABS# 8.39 10x3/uL (1.56-6.13); NEUTROPHILS 58.8 % (40-80); PLATELET COUNT 377 10x3/uL (130-400); RBC 3.09 10x6/uL (4.00-5.40); RDW 16.9 % (11.5-14.5); WBC 14.3 10x3/uL (4.8-10.8)
--- NOTE | 2020-11-04 07:32 | NUR ---
Patient had pain managed with the prescribed pain medications, she appeared to rest well through the night.
[2020-11-04 07:43] VITALS: BP 109/40
--- NOTE | 2020-11-04 12:13 | NUR ---
OT NOTE: PT PERFORMING WELL. BED MOB WITH SBA; ABLE TO JAQUAN PANTS, SOCKS, AND GOWN WITH SET UP; AMB TO TOILET WITH CGA.. L KNEE BUCKLED SEVERAL TIMES DURING IN ROOM AMBULATION.. HOWEVER, WHEN PT AMB INTO HALLWAY, SHE DID WELL. AMB WITH CGA. ABLE TO STAND AT SINK TO PERFORM GROOMING TASKS. BACK TO BED WITH SBA. LIMITED VERBALIZATION. JUWAN GARCÍA, OTR/L [id number]
[2020-11-04 12:35] VITALS: BP 118/78
[2020-11-04 15:00] VITALS: BP 134/77
--- NOTE | 2020-11-04 15:06 | NUR ---
PATIENT DIPS A BIT WHILE WALKING BUT WAS CGA WALKING 140 FT USED GT BELT
[2020-11-04 21:11] VITALS: BP 112/74
[2020-11-04 23:01] LABS: BILIRUBIN NEGATIVE (NEGATIVE); KETONE NEGATIVE (NEGATIVE); NITRITE NEGATIVE (NEGATIVE); UROBILINOGEN NORMAL mg/dL (< 2)
[2020-11-04 23:02] LABS: SQUAMOUS EPITHELIAL 0-5 HPF (0-4); WHITE CELLS - URINE 0-5 HPF (0-4)
[2020-11-04 23:03] LABS: BACTERIA FEW HPF (NONE SEEN)
--- NOTE | 2020-11-05 06:20 | NUR ---
Patients pain was managed with the prescribed pain medications, her spouse spent the night with her. Tried to get a [address] abd had ED come up to try and could not get it, will pass along to the oncoming nurse.
[2020-11-05 06:52] LABS: BASOPHILS 0.2 % (0-2); EOSINOPHILS 1.2 % (0-7); HEMATOCRIT 28.3 % (36.0-48.0); HEMOGLOBIN 10.3 g/dL (12-16); IMMATURE GRANULOCYTES 0.2 % (0-5); LYMPHOCYTE ABS# 3.75 10x3/uL (1.18-3.74); LYMPHOCYTES 26.4 % (15-50); MCH 30.7 pg (26.0-34.0); MCHC 36.4 g/dL (31.0-37.0); MCV 84.5 fL (80.0-100.0); MEAN PLATELET VOLUME 9.1 fL (7.4-10.4); MONOCYTES 7.5 % (2-11); NEUTROPHIL ABS# 9.15 10x3/uL (1.56-6.13); NEUTROPHILS 64.5 % (40-80); PLATELET COUNT 438 10x3/uL (130-400); RBC 3.35 10x6/uL (4.00-5.40); WBC 14.2 10x3/uL (4.8-10.8)
--- NOTE | 2020-11-05 06:56 | NUR ---
Patient refused to wear the telemetry and scd's this shift.
[2020-11-05 07:22] LABS: ALBUMIN 3.5 g/dL (3.4-5.0); ANION GAP 14.7 mmol/L (8-16); BILIRUBIN - TOTAL 1.19 mg/dL (0.2-1.3); CALCIUM 8.9 mg/dL (8.5-10.1); CARBON DIOXIDE 23.5 mmol/L (21.0-32.0); CREATININE - SERUM 0.9 mg/dL (0.6-1.3); MAGNESIUM - SERUM 1.8 mg/dL (1.8-2.4); POTASSIUM - SERUM 4.2 mmol/L (3.5-5.1); PROTEIN - SERUM 6.3 g/dL (6.4-8.2)
[2020-11-05 07:47] VITALS: BP 134/72
[2020-11-05] MEDS ORDERED: HYDROXYUREA500 MG PO (12:16)
[2020-11-05] MEDS ORDERED: LIPITOR20 MG PO (12:16)
[2020-11-05] MEDS ORDERED: ASPIRIN EC325 MG PO (12:16)
[2020-11-05] MEDS ORDERED: ELIQUIS5 MG PO (12:16)
[2020-11-05] MEDS ORDERED: PROTONIX40 MG PO (12:17)
[2020-11-05] MEDS ORDERED: MUCINEX600 MG PO (12:17)
[2020-11-05] MEDS ORDERED: TESSALON PERLE100 MG PO (12:17)
[2020-11-05 12:25] VITALS: BP 118/73
--- NOTE | 2020-11-05 12:51 | NUR ---
Nutrition follow-up: Diet changed to regular mechanical soft with nectar thick liquids/ground meat due to swallowing issues per speech pathologist. PO intake fair to good at meals Labs reviewed Wt: 110# Will provide food choices with selective menus and honor food preferences within diet restrictions. Follow-up: 11/10/20
[2020-11-05] MEDS ORDERED: HYDROCODON-ACE1 EA10 PO (13:42)
--- NOTE | 2020-11-05 14:41 | NUR ---
CM met with patient to complete initial dc planning assessment. CM educated patient on the CM role and verbal consent given by patient to complete assessment. Patient lives at home with her roommate (yuan) and her cousin .Yuan will be her courier delivery driver home today and will be the one to take her to and from OP ST. He was in the room while I was speaking to the patient about a dc plan. At discharge patient plans to return home and feels this is a safe discharge. CM discussed availability of home health, rehab services, and medical equipment. I have ordered her a cane from [employer] and it will be delivered to the hospital. I have set up her OP ST with [facility]. David with OP ST will call the patient tomorrow with her appointment. Patient denied known discharge needs at this time. CM will continue to follow and will assist as needed with dc plans/needs.
--- NOTE | 2020-11-05 15:01 | NUR ---
OT NOTE: PT CONTINUES TO AMB AROUND ROOM WITH CGA/SBA; TOILETING INDEPENDENTLY. DRESSING WITH SBA/INDEP.. JUWAN GARCÍA OTR/L
--- NOTE | 2020-11-06 12:02 | MORECARE ---
CASE MANAGEMENT DISCHARGE SUMMARY PATIENT: RODRICK RAMIREZ UNIT: [id number] ADM DATE: 11/02/20 AGE: 45 : [birth year] SEX: F ROOM/BED: D.2206 AUTHOR: DORIAN GAMING PHYSICIAN: REFERRING PHYSICIAN: AMY MILES MD DATE OF SERVICE: 11/06/20 Case Management Discharge Planning Summary COMMENTS ENTERED DATE: 11/05/20 14:30 CT COMMENT TYPE: Discharge Planning REVIEWER: Jessica Lazaro CM met with patient to complete initial dc planning assessment. CM educated patient on the CM role and verbal consent given by patient to complete assessment. Patient lives at home with her roommate (ke) and her cousin .Ke will be her funeral car driver home today and will be the one to take her to and from OP ST. He was in the room while I was speaking to the patient about a dc plan. At discharge patient plans to return home and feels this is a safe discharge. CM discussed availability of home health, rehab services, and medical equipment. I have ordered her a cane from [employer] and it will be delivered to the hospital. I have set up her OP ST with [facility]. David with OP ST will call the patient tomorrow with her appointment. Patient denied known discharge needs at this time. CM will continue to follow and will assist as needed with dc plans/needs. DCP REVIEW SUMMARY ANTICIPATED D/C DATE: EXPECTED LOS : CASE STATUS: DCP Initiated INITIAL REVIEW: 11/04/2020 INITIAL REVIEWER: Jessica Lazaro FINAL DISCHARGE DISPOSITION: 01 : Home or Self Care (Routine Discharge) FINAL REVIEWER: FINAL REVIEW DATE: LACE: UPDATED BY: [email or web address]: Jessica Lazaro on 11/05/20 14:46 CT QUESTION: ANSWER Length of Stay (Prior Admit): None Acute Admission: Inpatient Comorbidity: (1PT) DM no complications, Cerebrovascular Disease, Hx of PA, PVD, PUD Comorbidity Total Score 1 PT Emergency Room visits during previous 6 months: 4 or more Visits DCP Focus Questions & Answers DCP REV -DCP Review Added on: 11/05/20 2:12 pm QUESTION: ANSWER DCP Screen High Risk Factors: : Poor health literacy DCP Evaluation Patient's ability to cope with chronic illness : b. Minimal (2 - 3 ED visits in 6 mos., limited financial resources, occasionally misses appts.) Mental health screen: : No mental health history Would patient like to participate in any Care Coordination programs (if applicable): : Not applicable Physical Status: : Independent with ADL's Baseline cognitive status: : *Oriented to person, place, situation, time and present Family / Caregiver's ability to cope with chronic illness: : a. Adequate (ability to meet patient's medical needs, ensures patient attends medical appts.) Living Arrangements: : Home with others Living arrangements comments: : home with cousin and roommate Medication Management: : Patient states can afford medications Pharmacy name(s): : [facility] Does Patient have transportation to get home and to follow-up medical appointments when discharged from the hospital? : Yes Comments: : [place] Does the patient have electricity at home? : Yes Does the patient have running water in their house? : Yes Resources / Services in place: : Outpatient rehabilitation Contact information for resources in use: : WILL BE SET UP WITH OP ST Patient's current cognitive status: : *Oriented to person, place, situation, time and present Functional screen assessment: : New onset in difficulty in gait, balance, or transfer difficulties Patient with capacity for self-care or can be cared for in same environment as prior to hospitalization? : Yes Family / Caregiver's ability to cope with chronic illness: : a. Adequate (ability to meet patient's medical needs, ensures patient attends medical appts.) Is there a likelihood that the patient will require additional services to return to the preadmission environment? : Yes Results of this evaluation have been discussed with: : Other Comments: : ROOMMATE Patient and/or caregiver agree upon recommended discharge plan? : Yes Equipment needed for post hospitalization: : Cane - Quad Planned post hospital services available for patient? : Yes Planned post hospital services covered by insurance plan? : Yes Other Care Coordination programs/comments: : OP ST AT [facility] SET UP DCP Re-evaluation Would patient like to participate in any Care Coordination programs (if applicable): : Not applicable PROVIDER NETWORKING REVIEW DATE: 11/05/2020 SERVICE TYPE: Durable Medical Equipment REVIEWER: Jessica Lazaro PROVIDER: FINAL PROVIDER? : FINAL DATE/TIME: CT PATIENT: RODRICK RAMIREZ ENCOUNTER: [id number] MEDICAL RECORD#: [id number] ADMISSION DATE: 11/02/2020 DISCHARGE DATE: 11/05/2020 ATTENDING MD: AMY GARCIA : AGE: 45 MARITAL STATUS: M DC PLAN ID: [id number] FACILITY: [facility] PRINTED ON: 11/06/20 12:02 CT All edits/amendments must be made on the electronic document DICTATION DATE: 11/06/201201 VIDEO RECORDER MECHANIC: JOSEPHINE 11/06/201201 RPT#: [id number] DC DATE:11/05/20 STATUS: DIS IN [facility] [address] [place] [address] END OF REPORT
== END 2020-11-05 15:39 | disposition home or self-care (01) | DRG 66 ==
LOC: D.ER 12:31 → D.MS 14:16
PROVIDERS: Family Medicine; ADMIT Family Medicine Adult Medicine; ATTEND Family Medicine Adult Medicine
DX: I63.9 Cerebral infarction, unspecified (principal); D57.1 Sickle-cell disease without crisis; D72.829 Elevated white blood cell count, unspecified; G89.29 Other chronic pain; R47.81 Slurred speech; F14.10 Cocaine abuse, uncomplicated; F11.10 Opioid abuse, uncomplicated; F12.10 Cannabis abuse, uncomplicated